=== PATIENT | male | born 1940 | race Hispanic/Latino ===

== ENCOUNTER 2016-05-17 10:11 | Outpatient (CLI) | payer MEDICARE ==
--- NOTE | 2016-05-17 11:46 | Cat Scan Report ---
CT scan of chest without IV contrast: Compared to 01/30/16. History: Pulmonary nodule. Findings: No endobronchial or mediastinal mass. No mediastinal, hilar or axillary adenopathy. Subcentimeter lymph nodes are noted in the mediastinum. No pleural pericardial effusion. The previously noted lung nodule seen in the left upper lobe posteriorly is not seen in the present study. There is a calcified granuloma noted at the left lung lower lobe measuring 4 mm in diameter on series 3 image 79. No consolidation, no distinct mass. Linear density left lower lobe suggestive of discoid atelectasis or scarring. Impression: Calcified granuloma left lower lobe. Previously noted nodule left upper lobe is not seen in the present study. Discoid atelectasis or scarring left lower lobe.
== END 2016-05-17 10:12 | disposition home or self-care (01) ==
LOC: CT 10:11
PROVIDERS: ATTEND Specialist
DX: J84.10 Pulmonary fibrosis, unspecified (principal); J98.11 Atelectasis
CPT/HCPCS: 71250

== ENCOUNTER 2017-05-09 18:22 | Emergency (ER) | payer MEDICARE ==
[2017-05-09 19:53] VITALS: BP 147/89
[2017-05-09] MEDS ORDERED: ASPIRIN PO ONE (20:01)
[2017-05-09 20:44] LABS: BUN/Creatinine Ratio 27; Blood Urea Nitrogen 19 mg/dL (9-20); Calcium 9.4 mg/dL (8.4-10.2); Hemolysis Index 19
[2017-05-09 20:45] LABS: Hematocrit 43.5 % (35.5-45.6); Hemoglobin 13.6 gm/dl (11.8-15.2); Mean Corpuscular HGB Conc 31 % (32-34); Mean Corpuscular Hemoglobin 28 pg (28-32); Mean Corpuscular Volume 90 fl (84-94); Platelet Count 401 K/mm3 (140-440); Red Blood Count 4.84 M/mm3 (3.65-5.03); Red Cell Distribution Width 18.8 % (13.2-15.2)
[2017-05-09 21:29] LABS: Basophils % (Manual) 0 % (0.0-1.8); Eosinophils % (Manual) 0 % (0.0-4.3); Total Cells Counted 100
[2017-05-09 21:30] LABS: Ovalocytes 1+
[2017-05-09 21:31] LABS: Anisocytosis 1+; Platelet Estimate Consistent w Auto
--- NOTE | 2017-05-11 09:28 | XRay Report ---
CHEST TWO VIEWS: 05/09/17 20:22 CLINICAL: Shortness of breath. COMPARISON: 03/15/17 FINDINGS: Normal heart and pulmonary vasculature. The lungs are hyperexpanded and hyperlucent. No airspace disease or pleural effusion. Median sternotomy wires and mediastinal surgical clips. IMPRESSION: COPDand no acute cardiopulmonary process.
== END 2017-05-09 23:15 | disposition left against medical advice (07) ==
LOC: ED 18:22
DX: R06.02 Shortness of breath (principal); Z53.21 Procedure and treatment not carried out due to patient leaving prior to being seen by health care provider
CPT/HCPCS: 36415; 71046; 80048; 84484; 85007; 85025; 93005; 93010

== ENCOUNTER 2017-05-14 20:15 | Inpatient (IN) | payer MEDICARE ==
[2017-05-14] MEDS ORDERED: ASPIRIN PO ONE (21:18)
[2017-05-14 21:35] LABS: Basophils % (Auto) 0.2 % (0.0-1.8); Eosinophils % (Auto) 0.1 % (0.0-4.3); Hematocrit 32.4 % (35.5-45.6); Hemoglobin 10.7 gm/dl (11.8-15.2); Lymphocytes # (Auto) 1.5 K/mm3 (1.2-5.4); Lymphocytes % (Auto) 11.2 % (13.4-35.0); Mean Corpuscular HGB Conc 33 % (32-34); Mean Corpuscular Hemoglobin 29 pg (28-32); Mean Corpuscular Volume 88 fl (84-94); Monocytes # (Auto) 1.2 K/mm3 (0.0-0.8); Monocytes % (Auto) 8.9 % (0.0-7.3); Platelet Count 298 K/mm3 (140-440); Red Blood Count 3.68 M/mm3 (3.65-5.03); Red Cell Distribution Width 17.6 % (13.2-15.2)
[2017-05-14 22:01] LABS: BUN/Creatinine Ratio 45; Blood Urea Nitrogen 27 mg/dL (9-20); Calcium 8.3 mg/dL (8.4-10.2); Hemolysis Index 8
[2017-05-14] MEDS ORDERED: ATROVENT IH ONE (23:43)
[2017-05-14] MEDS ORDERED: PROVENTIL IH ONE (23:43)
[2017-05-14] MEDS ORDERED: TYLENOL PO PRN (23:44)
[2017-05-14] MEDS ORDERED: MAGNESIUM SULFATE 2GM/50ML 2 GM/50 ML BAG IV ONE (23:44)
--- NOTE | 2017-05-14 23:44 | Emergency Department Report ---
ED General Adult HPI - General Chief complaint: Chest Pain Stated complaint: BACK PAIN Time Seen by Provider: 05/14/17 23:36 Source: patient, RN notes reviewed, old records reviewed Mode of arrival: Stretcher Limitations: No Limitations, Physical Limitation - History of Present Illness Initial comments: This is a 76-year-old male. The patient is previously known to this provider. Past medical history includes COPD, heart disease status post bypass. Patient recently admitted to the hospital for COPD exacerbation. Had a negative x-ray of the chest on the . Discharged with multiple prescriptions including azithromycin, prednisone taper. The patient thinks he is home oxygen dependent. He presents to the ER today with a complaint of chronic shortness of breath, chronic cough, chronic wheezing, chronic chest pain and back pain. These symptoms have been present for months. They are not new, worsening or different. Patient reports decreased exercise tolerance and inability to complete activities of daily living chronically. Chest pain and back pain have been present for years, they are sharp and achy in nature, increased with palpation, range of motion, decreased with rest. There is no leg pain, there is no leg swelling. The patient denies urinary symptoms. Family endorses that they're having difficulty caring for him. -: Gradual, year(s) Location: chest, back Severity scale (0 -10): 7 Quality: aching Consistency: intermittent Improves with: rest Worsens with: movement Associated Symptoms: chest pain, cough, malaise, shortness of breath, weakness. denies: confusion, diaphoresis, fever/chills, headaches, loss of appetite, nausea/vomiting, rash, seizure, syncope - Related Data Previous Rx's Medication Instructions Recorded Last Taken Type ALBUTEROL Inhaler [ProAir HFA 2 puff IH QID PRN #1 inhalation 08/21/16 Unknown Rx Inhaler] Arformoterol Nebu [Brovana Nebu] 15 mcg IH Q12HR #60 neb 08/21/16 Unknown Rx Aspirin EC [Aspirin Enteric Coated 81 mg PO QDAY #30 tablet. 08/21/16 Unknown Rx TAB] AtorvaSTATin [Lipitor] 40 mg PO QHS #30 tablet 08/21/16 Unknown Rx Budesonide [Pulmicort Respules] 0.25 mg IH Q12HR #60 nebu 08/21/16 Unknown Rx Ipratropium/Albuterol Sulfate 1 ampul IH Q6HRT #180 ampul.neb 08/21/16 Unknown Rx [DUONEB *Not for PRN Use*] Metoprolol [Lopressor TAB] 50 mg PO BID #60 tablet 08/21/16 Unknown Rx Tiotropium [place] [Spiriva 4 gm IH DAILY #1 mist.inhal 08/21/16 Unknown Rx Respimat] Ipratropium/Albuterol Sulfate 1 ampul IH TIDRT ampul.neb 03/18/17 Unknown Rx [DUONEB *Not for PRN Use*] Azithromycin [Zithromax TAB] 250 mg PO QDAY #3 tablet 05/13/17 Unknown Rx Famotidine [Pepcid] 20 mg PO BID #60 tablet 05/13/17 Unknown Rx Prednisone [predniSONE 5 mg (6-Day 5 mg PO .TAPER #1 tab.ds.pk 05/13/17 Unknown Rx Pack, 21 Tabs)] oxyCODONE /ACETAMINOPHEN [Percocet 1 tab PO Q6H PRN #14 tablet 05/13/17 Unknown Rx 5/325 mg] Allergies Allergy/AdvReac Type Severity Reaction Status Date / Time quetiapine Allergy Swelling Verified 08/31/15 13:19 ED Review of Systems ROS: Stated complaint: BACK PAIN Other details as noted in HPI Comment: All other systems reviewed and negative ED Past Medical Hx - Past Medical History Hx Hypertension: Yes Hx Heart Attack/AMI: Yes Hx Congestive Heart Failure: Yes Hx Asthma: Yes Hx COPD: Yes - Surgical History Hx Open Heart Surgery: Yes Additional Surgical History: BYPASS SURGERY 1999 - Social History Smoking Status: Former Smoker Substance Use Type: None - Medications Home Medications: Home Medications Medication Instructions Recorded Confirmed Last Taken Type ALBUTEROL Inhaler [ProAir HFA 2 puff IH QID PRN #1 inhalation 08/21/16 03/18/17 Unknown Rx Inhaler] Arformoterol Nebu [Brovana Nebu] 15 mcg IH Q12HR #60 neb 08/21/16 03/18/17 Unknown Rx Aspirin EC [Aspirin Enteric Coated 81 mg PO QDAY #30 tablet. 08/21/16 Unknown Rx TAB] AtorvaSTATin [Lipitor] 40 mg PO QHS #30 tablet 08/21/16 03/18/17 Unknown Rx Budesonide [Pulmicort Respules] 0.25 mg IH Q12HR #60 nebu 08/21/16 03/18/17 Unknown Rx Ipratropium/Albuterol Sulfate 1 ampul IH Q6HRT #180 ampul.neb 08/21/16 03/18/17 Unknown Rx [DUONEB *Not for PRN Use*] Metoprolol [Lopressor TAB] 50 mg PO BID #60 tablet 08/21/16 03/18/17 Unknown Rx Tiotropium [place] [Spiriva 4 gm IH DAILY #1 mist.inhal 08/21/16 03/18/17 Unknown Rx Respimat] Ipratropium/Albuterol Sulfate 1 ampul IH TIDRT ampul.neb 03/18/17 Unknown Rx [DUONEB *Not for PRN Use*] Azithromycin [Zithromax TAB] 250 mg PO QDAY #3 tablet 05/13/17 Unknown Rx Famotidine [Pepcid] 20 mg PO BID #60 tablet 05/13/17 Unknown Rx Prednisone [predniSONE 5 mg (6-Day 5 mg PO .TAPER #1 tab.ds.pk 05/13/17 Unknown Rx Pack, 21 Tabs)] oxyCODONE /ACETAMINOPHEN [Percocet 1 tab PO Q6H PRN #14 tablet 05/13/17 Unknown Rx 5/325 mg] ED Physical Exam - General Limitations: No Limitations, Physical Limitation General appearance: alert, cachectic - Head Head exam: Present: atraumatic, normocephalic - Eye Eye exam: Present: normal appearance, EOMI - ENT ENT exam: Present: normal orophraynx, mucous membranes dry - Neck Neck exam: Present: normal inspection, full ROM - Respiratory Respiratory exam: Present: respiratory distress, wheezes, rhonchi - Cardiovascular Cardiovascular Exam: Present: regular rate, normal rhythm, normal heart sounds. Absent: bradycardia, tachycardia, irregular rhythm, systolic murmur, diastolic murmur, rubs, gallop - GI/Abdominal GI/Abdominal exam: Present: soft, normal bowel sounds. Absent: distended, tenderness, guarding, rebound, rigid, pulsatile mass - Rectal Rectal exam: Present: deferred - Extremities Exam Extremities exam: Present: normal inspection, full ROM, normal capillary refill. Absent: pedal edema, joint swelling, calf tenderness - Back Exam Back exam: Present: normal inspection, full ROM. Absent: tenderness, CVA tenderness (R) - Neurological Exam Neurological exam: Present: alert, oriented X3, CN II-XII intact, other ( Extraocular movements intact. Tongue midline. No facial droop. Facial sensation intact to light touch in the V1, V2, V3 distribution bilaterally. 5 and 5 strength in 4 extremities.. Sensation is intact to light touch in 4 extremities.). Absent: motor sensory deficit - Psychiatric Psychiatric exam: Present: flat affect - Skin Skin exam: Present: warm, dry, intact, normal color. Absent: rash ED Course Vital Signs 05/14/17 05/14/17 05/14/17 20:37 21:12 23:19 Temperature 98.1 F 97.7 F Pulse Rate 63 63 64 Pulse Rate [ Anterior Bilateral Throughout] Respiratory 18 19 Rate Respiratory Rate [Anterior Bilateral Throughout] Blood Pressure 120/54 120/54 Blood Pressure 139/48 [Left] O2 Sat by Pulse 91 93 99 Oximetry 05/15/17 00:17 Temperature Pulse Rate Pulse Rate [ 70 Anterior Bilateral Throughout] Respiratory Rate Respiratory 22 Rate [Anterior Bilateral Throughout] Blood Pressure Blood Pressure [Left] O2 Sat by Pulse Oximetry - Reevaluation(s) Reevaluation #1: 05/15/17 00:46 Differential diagnosis, including but not limited to: Pneumonia, bronchitis, COPD, chronic debilitating Assessment and plan: 76-year-old male with chronic COPD. He is wheezing, saturating at 97% on room air, family is having difficulty helping to care for him. Chest pain atypical, present for years, troponin negative multiple times today, negative multiple times during recent admission, EKG morphologically abnormal but appears unchanged from prior. As per verbal report from EMS, patient was brought back because he cannot get his prescriptions filled. There appears to be significant social component to this patient's presentation. He will be given albuterol, Atrovent, steroids, magnesium. X-ray of the chest today was negative for pneumonia. It was negative for pneumonia a few days ago as well. Based on history, physical, duration of symptoms, I do not believe the patient requires any additional risk stratification for pulmonary embolus. The main issue here is his psychosocial needs, which will be addressed by heel caser and her social security benefits interviewer in the morning to assist with placement. Reevaluation #2: 05/15/17 01:19 Laboratory studies indicate hypoxemic respiratory failure. Patient still symptomatic. BiPAP is ordered. Hospital physician is paged to arrange admission. Reevaluation #3: 05/15/17 01:43 Dr. Mehta, the hospital physician accepts the patient to the medical service. ED Medical Decision Making - Lab Data Result diagrams: 05/14/17 21:24 05/14/17 21:24 Vital Signs 05/14/17 05/14/17 05/14/17 20:37 21:12 23:19 Temperature 98.1 F 97.7 F Pulse Rate 63 63 64 Pulse Rate [ Anterior Bilateral Throughout] Respiratory 18 19 Rate Respiratory Rate [Anterior Bilateral Throughout] Blood Pressure 120/54 120/54 Blood Pressure 139/48 [Left] O2 Sat by Pulse 91 93 99 Oximetry 05/15/17 00:17 Temperature Pulse Rate Pulse Rate [ 70 Anterior Bilateral Throughout] Respiratory Rate Respiratory 22 Rate [Anterior Bilateral Throughout] Blood Pressure Blood Pressure [Left] O2 Sat by Pulse Oximetry Lab Results 05/14/17 05/14/17 Range/Units 21:24 21:24 WBC 13.6 H (4.5-11.0) K/mm3 RBC 3.68 (3.65-5.03) M/mm3 Hgb 10.7 L (11.8-15.2) gm/dl Hct 32.4 L (35.5-45.6) % MCV 88 (84-94) fl MCH 29 (28-32) pg MCHC 33 (32-34) % RDW 17.6 H (13.2-15.2) % Plt Count 298 (140-440) K/mm3 Lymph % (Auto) 11.2 L (13.4-35.0) % [place] % (Auto) 8.9 H (0.0-7.3) % Eos % (Auto) 0.1 (0.0-4.3) % Baso % (Auto) 0.2 (0.0-1.8) % Lymph # 1.5 (1.2-5.4) K/mm3 [place] # 1.2 H (0.0-0.8) K/mm3 Eos # 0.0 (0.0-0.4) K/mm3 Baso # 0.0 (0.0-0.1) K/mm3 Seg Neutrophils % 79.6 H (40.0-70.0) % Seg Neutrophils # 10.8 H (1.8-7.7) K/mm3 Sodium 134 L (137-145) mmol/L Potassium 3.7 (3.6-5.0) mmol/L Chloride 96.0 L (98-107) mmol/L Carbon Dioxide 25 (22-30) mmol/L Anion Gap 17 mmol/L BUN 27 H (9-20) mg/dL Creatinine 0.6 L (0.8-1.5) mg/dL Estimated GFR > 60 ml/min BUN/Creatinine Ratio 45 % Glucose 99 (75-100) mg/dL Calcium 8.3 L (8.4-10.2) mg/dL Troponin T < 0.010 (0.00-0.029) ng/mL - EKG Data -: EKG Interpreted by Me - EKG Data When compared to previous EKG there are: no significant change 05/15/17 00:48 Normal sinus, 64 beats per minutes, and left axis deviation, multiple premature complexes, appears unchanged from old EKG from a few days ago, not consistent with a STEMI, normal intervals. - Radiology Data Radiology results: report reviewed, image reviewed X-ray of the chest demonstrates hyperinflated lungs, status post sternotomy, no obvious infiltrate. Critical Care Time: Yes Critical care time in (mins) excluding proc time.: 35 Critical care attestation.: If time is entered above; I have spent that time in minutes in the direct care of this critically ill patient, excluding procedure time. ED Disposition Clinical Impression: COPD exacerbation, SOB (shortness of breath), Acute respiratory failure Disposition: OP ADMIT IP TO THIS HOSP Is pt being admited?: Yes Does the pt Need Aspirin: Yes Condition: Good Instructions: Chronic Bronchitis (ED) Referrals: PATRIC ROWLAND MD [Primary Care Provider] - 3-5 Days
--- NOTE | 2017-05-15 00:18 | XRay Report ---
FINAL REPORT PROCEDURE: XR CHEST ROUTINE 2V TECHNIQUE: Chest radiograph anteroposterior view. CPT 78635 HISTORY: copd cp COMPARISON: 05/11/2017 FINDINGS: Heart: Normal. Mediastinum/Vessels: Multiple sternal wires are present. Lungs/Pleural space: Normal. Bony thorax: No acute osseous abnormality. Life support devices: None. IMPRESSION: No acute cardiopulmonary abnormality.
[2017-05-15] MEDS ORDERED: ZITHROMAX 500 MG in NACL 0.9% 250ML 250 ML IV ONE (01:19)
[2017-05-15] MEDS ORDERED: BABY ASPIRIN PO ONE (01:20)
[2017-05-15] MEDS ORDERED: ZITHROMAX 250 MG in NACL 0.9% 250ML 250 ML IV ONE (02:00)
[2017-05-15] MEDS ORDERED: SODIUM CHLORIDE FLUSH SYRINGE 10 ML IV PRN (03:35)
[2017-05-15] MEDS ORDERED: ZOFRAN IV PRN (03:35)
--- NOTE | 2017-05-15 03:40 | History and Physical Report ---
History of Present Illness Date of examination: 05/15/17 History of present illness: 62-year-old man with a history of COPD, hypertension, hyperlipidemia comes emergency room with complaints of shortness of breath. The patient was just discharged from the hospital yesterday, he returned to the emergency room, he had difficulty filling his prescription for prednisone and that is all the medications. Neighbor who brought him to the emergency room state that he has difficulty caring for himself at home . Complains of cough productive of yellow phlegm, no fever or chills. Patient was placed on BiPAP in the emergency room Review Of Systems: Constitutional: no weight loss Ears, eyes, nose, mouth and throat: no nasal congestion, no nasal discharge, no sinus pressure, blurry vision, diplopia Neck: No neck pain or rigidity. Cardiovascular: no Chest pain, orthopnea, palpitations Respiratory: + shortness of breath, cough Gastrointestinal: no abdominal pain, hematochezia Genitourinary : no dysuria, frequency , hematuria Musculoskeletal: no muscle ache Integumentary: no rash, no pruritis Neurological: no parathesias, focal weakness Endocrine: no cold or heat intolerance, no polyuria or polydipsia Hematologic/Lymphatic: no easy bruising, no easy bleeding, no gland swelling Allergic/Immunologic: no urticaria, no angioedema. PAST MEDICAL HISTORY: COPD, hypertension, hyperlipidemia PAST SURGICAL HISTORY: None SOCIAL HISTORY: Denies tobacco, alcohol, drugs FAMILY HISTORY: Hypertension Medications and Allergies Allergies Allergy/AdvReac Type Severity Reaction Status Date / Time quetiapine Allergy Swelling Verified 08/31/15 13:19 Home Medications Medication Instructions Recorded Confirmed Last Taken Type ALBUTEROL Inhaler [ProAir HFA 2 puff IH QID PRN #1 inhalation 08/21/16 03/18/17 Unknown Rx Inhaler] Arformoterol Nebu [Brovana Nebu] 15 mcg IH Q12HR #60 neb 08/21/16 03/18/17 Unknown Rx Aspirin EC [Aspirin Enteric Coated 81 mg PO QDAY #30 tablet. 08/21/16 Unknown Rx TAB] AtorvaSTATin [Lipitor] 40 mg PO QHS #30 tablet 08/21/16 03/18/17 Unknown Rx Budesonide [Pulmicort Respules] 0.25 mg IH Q12HR #60 nebu 08/21/16 03/18/17 Unknown Rx Ipratropium/Albuterol Sulfate 1 ampul IH Q6HRT #180 ampul.neb 08/21/16 03/18/17 Unknown Rx [DUONEB *Not for PRN Use*] Metoprolol [Lopressor TAB] 50 mg PO BID #60 tablet 08/21/16 03/18/17 Unknown Rx Tiotropium [place] [Spiriva 4 gm IH DAILY #1 mist.inhal 08/21/16 03/18/17 Unknown Rx Respimat] Ipratropium/Albuterol Sulfate 1 ampul IH TIDRT ampul.neb 03/18/17 Unknown Rx [DUONEB *Not for PRN Use*] Azithromycin [Zithromax TAB] 250 mg PO QDAY #3 tablet 05/13/17 Unknown Rx Famotidine [Pepcid] 20 mg PO BID #60 tablet 05/13/17 Unknown Rx Prednisone [predniSONE 5 mg (6-Day 5 mg PO .TAPER #1 tab.ds.pk 05/13/17 Unknown Rx Pack, 21 Tabs)] oxyCODONE /ACETAMINOPHEN [Percocet 1 tab PO Q6H PRN #14 tablet 05/13/17 Unknown Rx 5/325 mg] Active Meds: Active Medications Acetaminophen (Tylenol) 650 mg PO Q6HR PRN PRN Reason: Pain Acetaminophen (Tylenol) 650 mg PO Q4H PRN PRN Reason: Pain MILD(1-3)/Fever >100.5/MEDEROS Albuterol/Ipratropium (Duoneb *Not For Prn Use*) 1 ampul IH Q6HRT JAZMINE Enoxaparin Sodium (Lovenox) 30 mg SUB-Q QDAY JAZMINE Methylprednisolone Sodium Succinate (Solu-Medrol) 125 mg IV Q6H JAZMINE Ondansetron HCl (Zofran) 4 mg IV Q8H PRN PRN Reason: Nausea And Vomiting Sodium Chloride (Sodium Chloride Flush Syringe 10 Ml) 10 ml IV BID JAZMINE Sodium Chloride (Sodium Chloride Flush Syringe 10 Ml) 10 ml IV PRN PRN PRN Reason: LINE FLUSH Exam - Physical Exam Narrative exam: Gen. appearance: Patient lying in bed, no apparent distress HEENT: Normocephalic, atraumatic, pupils equally round and reactive to light, extraocular movement intact, and no sclericterus,. No JVD or thyromegaly or nodule,neck supple, no carotid bruit ,mucous membranes moist, no exudate or erythema Heart: S1, S2, regular rate and rhythm Lungs: Wheezing bilaterally, breathing comfortable Abdomen: Positive bowel sounds, nontender, nondistended, no organomegaly Extremity: No edema, cyanosis, clubbing Skin: No rash, nodules, warm, dry Neuro: Oriented 3, cranial nerves II-12 intact, speech is fluent, motor and sensory intact - Constitutional Vitals: Temp Pulse Resp BP Pulse Ox 97.7 F 105 H 27 H 115/47 97 05/14/17 23:19 05/15/17 03:00 05/15/17 03:00 05/15/17 03:00 05/15/17 03:00 Results - Labs CBC & Chem 7: 05/14/17 21:24 05/14/17 21:24 Labs: Abnormal lab results 05/14/17 05/14/17 05/15/17 Range/Units 21:24 21:24 00:29 WBC 13.6 H (4.5-11.0) K/mm3 Hgb 10.7 L (11.8-15.2) gm/dl Hct 32.4 L (35.5-45.6) % RDW 17.6 H (13.2-15.2) % Lymph % (Auto) 11.2 L (13.4-35.0) % [place] % (Auto) 8.9 H (0.0-7.3) % [place] # 1.2 H (0.0-0.8) K/mm3 Seg Neutrophils % 79.6 H (40.0-70.0) % Seg Neutrophils # 10.8 H (1.8-7.7) K/mm3 POC ABG pH (7.35-7.45) POC ABG pCO2 (35-45) POC ABG pO2 (80-105) Sodium 134 L (137-145) mmol/L Chloride 96.0 L (98-107) mmol/L BUN 27 H (9-20) mg/dL Creatinine 0.6 L (0.8-1.5) mg/dL Calcium 8.3 L (8.4-10.2) mg/dL Total Creatine Kinase 23 L (55-170) units/L 05/15/17 Range/Units 01:13 WBC (4.5-11.0) K/mm3 Hgb (11.8-15.2) gm/dl Hct (35.5-45.6) % RDW (13.2-15.2) % Lymph % (Auto) (13.4-35.0) % [place] % (Auto) (0.0-7.3) % [place] # (0.0-0.8) K/mm3 Seg Neutrophils % (40.0-70.0) % Seg Neutrophils # (1.8-7.7) K/mm3 POC ABG pH 7.518 H (7.35-7.45) POC ABG pCO2 29.7 L (35-45) POC ABG pO2 31 L (80-105) Sodium (137-145) mmol/L Chloride (98-107) mmol/L BUN (9-20) mg/dL Creatinine (0.8-1.5) mg/dL Calcium (8.4-10.2) mg/dL Total Creatine Kinase (55-170) units/L Assessment and Plan Assessment Acute respiratory failure Acute COPD exacerbation Hypertension Hyperlipidemia Plan Admit to medicine Start high-dose steroids, nebulizer treatment, continue BiPAP Case management consult Continued outpatient medications DVT prophylaxis
[2017-05-15 04:17] LABS: Creatine Kinase MB 1.8 ng/mL (0.0-4.0)
[2017-05-15] MEDS ORDERED: BROVANA NEBU IH SCH (08:00)
[2017-05-15] MEDS: DUONEB *Not for PRN Use IH SCH ×3 (09:26→20:25)
[2017-05-15] MEDS: PEPCID PO SCH ×2 (11:32→21:26)
[2017-05-15] MEDS: HALFPRIN EC PO SCH (11:32)
[2017-05-15] MEDS: LOPRESSOR PO SCH ×2 (11:34→21:26)
[2017-05-15] MEDS: LOVENOX SUB-Q SCH (11:34)
[2017-05-15] MEDS: SODIUM CHLORIDE FLUSH SYRINGE 10 ML IV SCH ×2 (11:48→21:27)
--- NOTE | 2017-05-15 16:48 | Event Note ---
Date: 05/15/17 Agent admitted for COPD exacerbation, patient is able to take care of himself. Patient needs placement.
[2017-05-15] MEDS: PERCOCET 5/325 PO PRN (19:07)
[2017-05-15] MEDS: AMBIEN PO PRN (23:34)
[2017-05-16] MEDS: PERCOCET 5/325 PO PRN ×3 (01:29→21:11)
[2017-05-16] MEDS: DUONEB *Not for PRN Use IH SCH ×4 (03:40→20:39)
[2017-05-16 07:41] LABS: Hematocrit 28.5 % (35.5-45.6); Hemoglobin 9.5 gm/dl (11.8-15.2); Mean Corpuscular HGB Conc 33 % (32-34); Mean Corpuscular Hemoglobin 29 pg (28-32); Mean Corpuscular Volume 87 fl (84-94); Platelet Count 283 K/mm3 (140-440); Red Blood Count 3.27 M/mm3 (3.65-5.03); Red Cell Distribution Width 17.5 % (13.2-15.2)
[2017-05-16 08:00] LABS: BUN/Creatinine Ratio 33; Blood Urea Nitrogen 20 mg/dL (9-20); Calcium 8.2 mg/dL (8.4-10.2); Hemolysis Index 1
[2017-05-16] MEDS: PULMICORT IH SCH ×2 (08:27→20:38)
[2017-05-16] MEDS: BROVANA NEBU IH SCH ×2 (08:27→20:38)
[2017-05-16 08:33] LABS: Basophils % (Manual) 0 % (0.0-1.8); Eosinophils % (Manual) 0 % (0.0-4.3); Total Cells Counted 100
[2017-05-16 08:34] LABS: RBC Morphology Normal
--- NOTE | 2017-05-16 10:04 | Progress Note ---
Assessment and Plan Assessment and plan: Acute COPD exacerbation Continue Brovana and Pulmicort, solu-medrol. supplemental Oxygen Acute respiratory failure due to COPD exacerbation Continue supplemental Oxygen. Hypertension BP stable. resume Metoprolol bid Hyperlipidemia Continue statin DVT prophylaxis Lovenox. Patient disposition [facility] placement at [facility] History Interval history: Patient seen and examined. No new issues overnight. Labs and nursing notes reviewed. Hospitalist Physical - Constitutional Vitals: Temp Pulse Resp BP Pulse Ox 99.1 F 107 H 20 113/47 91 05/16/17 03:59 05/16/17 04:00 05/16/17 03:59 05/16/17 03:59 05/16/17 03:59 General appearance: Present: no acute distress, cachectic - EENT Eyes: Present: PERRL, EOM intact ENT: hearing intact, clear oral mucosa - Neck Neck: Present: supple, normal ROM - Respiratory Respiratory effort: normal Respiratory: bilateral: diminished - Cardiovascular Rhythm: regular Heart Sounds: Present: S1 & S2 - Extremities Extremities: no ischemia, No edema - Abdominal General gastrointestinal: soft, non-tender, non-distended - Integumentary Integumentary: Present: clear, warm, dry - Psychiatric Psychiatric: appropriate mood/affect, intact judgment & insight, cooperative - Neurologic Neurologic: CNII-XII intact, moves all extremities - Allied Health Allied health notes reviewed: nursing Results - Labs CBC & Chem 7: 05/16/17 07:05 05/16/17 07:05 Labs: Laboratory Last Values WBC 14.8 K/mm3 (4.5-11.0) H 05/16/17 07:05 RBC 3.27 M/mm3 (3.65-5.03) L 05/16/17 07:05 Hgb 9.5 gm/dl (11.8-15.2) L 05/16/17 07:05 Hct 28.5 % (35.5-45.6) L 05/16/17 07:05 MCV 87 fl (84-94) 05/16/17 07:05 MCH 29 pg (28-32) 05/16/17 07:05 MCHC 33 % (32-34) 05/16/17 07:05 RDW 17.5 % (13.2-15.2) H 05/16/17 07:05 Plt Count 283 K/mm3 (140-440) 05/16/17 07:05 Lymph % (Auto) 11.2 % (13.4-35.0) L 05/14/17 21:24 [place] % (Auto) 8.9 % (0.0-7.3) H 05/14/17 21:24 Eos % (Auto) 0.1 % (0.0-4.3) 05/14/17 21:24 Baso % (Auto) 0.2 % (0.0-1.8) 05/14/17 21:24 Lymph # 1.5 K/mm3 (1.2-5.4) 05/14/17 21:24 [place] # 1.2 K/mm3 (0.0-0.8) H 05/14/17 21:24 Eos # 0.0 K/mm3 (0.0-0.4) 05/14/17 21:24 Baso # 0.0 K/mm3 (0.0-0.1) 05/14/17 21:24 Add Manual Diff Complete 05/16/17 07:05 Total Counted 100 05/16/17 07:05 Seg Neutrophils % Scrap Drop Operator 05/16/17 07:05 Seg Neuts % (Manual) 92.0 % (40.0-70.0) H 05/16/17 07:05 Band Neutrophils % 0 % 05/16/17 07:05 Lymphocytes % (Manual) 4.0 % (13.4-35.0) L 05/16/17 07:05 Reactive Lymphs % (Man) 0 % 05/16/17 07:05 Monocytes % (Manual) 4.0 % (0.0-7.3) 05/16/17 07:05 Eosinophils % (Manual) 0 % (0.0-4.3) 05/16/17 07:05 Basophils % (Manual) 0 % (0.0-1.8) 05/16/17 07:05 Metamyelocytes % 0 % 05/16/17 07:05 Myelocytes % 0 % 05/16/17 07:05 Promyelocytes % 0 % 05/16/17 07:05 Blast Cells % 0 % 05/16/17 07:05 Nucleated RBC % Not Reportable 05/16/17 07:05 Seg Neutrophils # 10.8 K/mm3 (1.8-7.7) H 05/14/17 21:24 Seg Neutrophils # Man 13.6 K/mm3 (1.8-7.7) H 05/16/17 07:05 Band Neutrophils # 0.0 K/mm3 05/16/17 07:05 Lymphocytes # (Manual) 0.6 K/mm3 (1.2-5.4) L 05/16/17 07:05 Abs React Lymphs (Man) 0.0 K/mm3 05/16/17 07:05 Monocytes # (Manual) 0.6 K/mm3 (0.0-0.8) 05/16/17 07:05 Eosinophils # (Manual) 0.0 K/mm3 (0.0-0.4) 05/16/17 07:05 Basophils # (Manual) 0.0 K/mm3 (0.0-0.1) 05/16/17 07:05 Metamyelocytes # 0.0 K/mm3 05/16/17 07:05 Myelocytes # 0.0 K/mm3 05/16/17 07:05 Promyelocytes # 0.0 K/mm3 05/16/17 07:05 Blast Cells # 0.0 K/mm3 05/16/17 07:05 WBC Morphology Not Reportable 05/16/17 07:05 Hypersegmented Neuts Not Reportable 05/16/17 07:05 Hyposegmented Neuts Not Reportable 05/16/17 07:05 Hypogranular Neuts Not Reportable 05/16/17 07:05 Smudge Cells Not Reportable 05/16/17 07:05 Toxic Granulation Not Reportable 05/16/17 07:05 Toxic Vacuolation Not Reportable 05/16/17 07:05 Dohle Bodies Not Reportable 05/16/17 07:05 Pelger-Huet Anomaly Not Reportable 05/16/17 07:05 Khari Rods Not Reportable 05/16/17 07:05 Platelet Estimate Appears normal 05/16/17 07:05 Clumped Platelets Not Reportable 05/16/17 07:05 Plt Clumps, EDTA Not Reportable 05/16/17 07:05 Large Platelets Not Reportable 05/16/17 07:05 Giant Platelets Not Reportable 05/16/17 07:05 Platelet Satelliting Not Reportable 05/16/17 07:05 Plt Morphology Comment Not Reportable 05/16/17 07:05 RBC Morphology Normal 05/16/17 07:05 Dimorphic RBCs Not Reportable 05/16/17 07:05 Polychromasia Not Reportable 05/16/17 07:05 Hypochromasia Not Reportable 05/16/17 07:05 Poikilocytosis Not Reportable 05/16/17 07:05 Anisocytosis Not Reportable 05/16/17 07:05 Microcytosis Not Reportable 05/16/17 07:05 Macrocytosis Not Reportable 05/16/17 07:05 Spherocytes Not Reportable 05/16/17 07:05 Pappenheimer Bodies Not Reportable 05/16/17 07:05 Sickle Cells Not Reportable 05/16/17 07:05 Target Cells Not Reportable 05/16/17 07:05 Tear Drop Cells Not Reportable 05/16/17 07:05 Ovalocytes Not Reportable 05/16/17 07:05 Helmet Cells Not Reportable 05/16/17 07:05 [place] Bodies Not Reportable 05/16/17 07:05 [place] Rings Not Reportable 05/16/17 07:05 [place] Cells Not Reportable 05/16/17 07:05 Bite Cells Not Reportable 05/16/17 07:05 Crenated Cell Not Reportable 05/16/17 07:05 Elliptocytes Not Reportable 05/16/17 07:05 Acanthocytes (Spur) Not Reportable 05/16/17 07:05 Rouleaux Not Reportable 05/16/17 07:05 Hemoglobin C Crystals Not Reportable 05/16/17 07:05 Schistocytes Not Reportable 05/16/17 07:05 Malaria parasites Not Reportable 05/16/17 07:05 Mike Bodies Not Reportable 05/16/17 07:05 Hem Pathologist Commnt No 05/16/17 07:05 POC ABG pH 7.518 (7.35-7.45) H 05/15/17 01:13 POC ABG pCO2 29.7 (35-45) L 05/15/17 01:13 POC ABG pO2 31 (80-105) L 05/15/17 01:13 POC ABG HCO3 24.2 05/15/17 01:13 POC ABG Total CO2 25 05/15/17 01:13 POC ABG O2 Sat 69 03/29/18 01:13 POC ABG Base Excess 1 05/15/17 01:13 FiO2 32 % 05/15/17 01:13 Sodium 139 mmol/L (137-145) 05/16/17 07:05 Potassium 3.6 mmol/L (3.6-5.0) 05/16/17 07:05 Chloride 99.6 mmol/L (98-107) 05/16/17 07:05 Carbon Dioxide 25 mmol/L (22-30) 05/16/17 07:05 Anion Gap 18 mmol/L 05/16/17 07:05 BUN 20 mg/dL (9-20) 05/16/17 07:05 Creatinine 0.6 mg/dL (0.8-1.5) L 05/16/17 07:05 Estimated GFR > 60 ml/min 05/16/17 07:05 BUN/Creatinine Ratio 33 % 05/16/17 07:05 Glucose 168 mg/dL (75-100) H 05/16/17 07:05 Calcium 8.2 mg/dL (8.4-10.2) L 05/16/17 07:05 Total Creatine Kinase 20 units/L (55-170) L 05/15/17 09:56 CK-MB (CK-2) 2.0 ng/mL (0.0-4.0) 05/15/17 09:56 CK-MB (CK-2) Rel Index 10.0 (0-4) H 05/15/17 09:56 Troponin T < 0.010 ng/mL (0.00-0.029) 05/15/17 09:56
[2017-05-16] MEDS: LOVENOX SUB-Q SCH (10:49)
[2017-05-16] MEDS: PEPCID PO SCH ×2 (10:49→21:06)
[2017-05-16] MEDS: HALFPRIN EC PO SCH (10:49)
[2017-05-16] MEDS: LOPRESSOR PO SCH ×2 (10:49→21:06)
[2017-05-16] MEDS ORDERED: PNEUMOVAX 23 IM ONE (12:00)
[2017-05-16] MEDS: AMBIEN PO PRN (21:12)
[2017-05-17] MEDS: DUONEB *Not for PRN Use IH SCH ×4 (02:48→20:52)
[2017-05-17] MEDS: PERCOCET 5/325 PO PRN ×2 (02:58→19:09)
[2017-05-17] MEDS: SODIUM CHLORIDE FLUSH SYRINGE 10 ML IV SCH ×5 (05:37→23:31)
[2017-05-17] MEDS: BROVANA NEBU IH SCH ×2 (08:06→20:52)
[2017-05-17] MEDS: PULMICORT IH SCH ×2 (08:06→20:52)
[2017-05-17] MEDS: HALFPRIN EC PO SCH (11:52)
[2017-05-17] MEDS: LOVENOX SUB-Q SCH (11:52)
[2017-05-17] MEDS: LOPRESSOR PO SCH ×2 (11:52→23:28)
[2017-05-17] MEDS: PEPCID PO SCH ×2 (11:53→23:28)
--- NOTE | 2017-05-17 18:14 | Progress Note ---
Assessment and Plan Assessment and plan: 76-year-old male presented to the ED for c/o SOB and not able to taking care of himself. Patient was discharged the day before admission after he was treated for COPD exacerbation. Patient didn't refill hid medications at the time of discharge. Acute hypoxic respiratory failure COPD exacerbation - Patient is on Solu-Medrol, nebulizer, oxygen support - Patient showed marked improvement Hyperlipidemia - Continue statin Hypertension - Well-controlled - Continue metoprolol Leukocytosis secondary to steroid Patient is not able to take care of himself, PT consult placed, discussed this case management for placement DVT prophylaxis - Lovenox History Interval history: Patient was seen and evaluated this morning, patient was breathing comfortably without oxygen. Hospitalist Physical - Physical exam Narrative exam: Not in cardiopulmonary distress. The patient appeared well nourished and normally developed. Vital signs as documented. Head exam is unremarkable. No scleral icterus . Neck is without jugular venous distension, thyromegaly, or carotid bruits. Lungs scattered wheezing. Cardiac exam reveals regular rate and Rhythm. First and second heart sounds normal. No murmurs, rubs or gallops. Abdominal exam reveals normal bowel sounds, no masses, no organomegaly and no aortic enlargement. Extremities are nonedematous and both femoral and pedal pulses are normal. 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 No focal weakness. - Constitutional Vitals: Temp Pulse Resp BP Pulse Ox 98.0 F 75 18 126/62 94 05/17/17 05:14 05/17/17 15:19 05/17/17 15:19 05/17/17 05:14 05/17/17 08:09 General appearance: Present: no acute distress, cachectic Results - Labs CBC & Chem 7: 05/16/17 07:05 05/16/17 07:05 Labs: Laboratory Last Values WBC 14.8 K/mm3 (4.5-11.0) H 05/16/17 07:05 RBC 3.27 M/mm3 (3.65-5.03) L 05/16/17 07:05 Hgb 9.5 gm/dl (11.8-15.2) L 05/16/17 07:05 Hct 28.5 % (35.5-45.6) L 05/16/17 07:05 MCV 87 fl (84-94) 05/16/17 07:05 MCH 29 pg (28-32) 05/16/17 07:05 MCHC 33 % (32-34) 05/16/17 07:05 RDW 17.5 % (13.2-15.2) H 05/16/17 07:05 Plt Count 283 K/mm3 (140-440) 05/16/17 07:05 Lymph % (Auto) 11.2 % (13.4-35.0) L 05/14/17 21:24 [place] % (Auto) 8.9 % (0.0-7.3) H 05/14/17 21:24 Eos % (Auto) 0.1 % (0.0-4.3) 05/14/17 21:24 Baso % (Auto) 0.2 % (0.0-1.8) 05/14/17 21:24 Lymph # 1.5 K/mm3 (1.2-5.4) 05/14/17 21:24 [place] # 1.2 K/mm3 (0.0-0.8) H 05/14/17 21:24 Eos # 0.0 K/mm3 (0.0-0.4) 05/14/17 21:24 Baso # 0.0 K/mm3 (0.0-0.1) 05/14/17 21:24 Add Manual Diff Complete 05/16/17 07:05 Total Counted 100 05/16/17 07:05 Seg Neutrophils % Slitter Scorer Cut Off Operator 05/16/17 07:05 Seg Neuts % (Manual) 92.0 % (40.0-70.0) H 05/16/17 07:05 Band Neutrophils % 0 % 05/16/17 07:05 Lymphocytes % (Manual) 4.0 % (13.4-35.0) L 05/16/17 07:05 Reactive Lymphs % (Man) 0 % 05/16/17 07:05 Monocytes % (Manual) 4.0 % (0.0-7.3) 05/16/17 07:05 Eosinophils % (Manual) 0 % (0.0-4.3) 05/16/17 07:05 Basophils % (Manual) 0 % (0.0-1.8) 05/16/17 07:05 Metamyelocytes % 0 % 05/16/17 07:05 Myelocytes % 0 % 03/30/18 07:05 Promyelocytes % 0 % 05/16/17 07:05 Blast Cells % 0 % 05/16/17 07:05 Nucleated RBC % Not Reportable 05/16/17 07:05 Seg Neutrophils # 10.8 K/mm3 (1.8-7.7) H 05/14/17 21:24 Seg Neutrophils # Man 13.6 K/mm3 (1.8-7.7) H 05/16/17 07:05 Band Neutrophils # 0.0 K/mm3 05/16/17 07:05 Lymphocytes # (Manual) 0.6 K/mm3 (1.2-5.4) L 05/16/17 07:05 Abs React Lymphs (Man) 0.0 K/mm3 05/16/17 07:05 Monocytes # (Manual) 0.6 K/mm3 (0.0-0.8) 05/16/17 07:05 Eosinophils # (Manual) 0.0 K/mm3 (0.0-0.4) 05/16/17 07:05 Basophils # (Manual) 0.0 K/mm3 (0.0-0.1) 05/16/17 07:05 Metamyelocytes # 0.0 K/mm3 05/16/17 07:05 Myelocytes # 0.0 K/mm3 05/16/17 07:05 Promyelocytes # 0.0 K/mm3 05/16/17 07:05 Blast Cells # 0.0 K/mm3 05/16/17 07:05 WBC Morphology Not Reportable 05/16/17 07:05 Hypersegmented Neuts Not Reportable 05/16/17 07:05 Hyposegmented Neuts Not Reportable 05/16/17 07:05 Hypogranular Neuts Not Reportable 05/16/17 07:05 Smudge Cells Not Reportable 05/16/17 07:05 Toxic Granulation Not Reportable 05/16/17 07:05 Toxic Vacuolation Not Reportable 05/16/17 07:05 Dohle Bodies Not Reportable 05/16/17 07:05 Pelger-Huet Anomaly Not Reportable 05/16/17 07:05 Khari Rods Not Reportable 05/16/17 07:05 Platelet Estimate Appears normal 05/16/17 07:05 Clumped Platelets Not Reportable 05/16/17 07:05 Plt Clumps, EDTA Not Reportable 05/16/17 07:05 Large Platelets Not Reportable 05/16/17 07:05 Giant Platelets Not Reportable 05/16/17 07:05 Platelet Satelliting Not Reportable 05/16/17 07:05 Plt Morphology Comment Not Reportable 05/16/17 07:05 RBC Morphology Normal 05/16/17 07:05 Dimorphic RBCs Not Reportable 05/16/17 07:05 Polychromasia Not Reportable 05/16/17 07:05 Hypochromasia Not Reportable 05/16/17 07:05 Poikilocytosis Not Reportable 05/16/17 07:05 Anisocytosis Not Reportable 05/16/17 07:05 Microcytosis Not Reportable 05/16/17 07:05 Macrocytosis Not Reportable 05/16/17 07:05 Spherocytes Not Reportable 05/16/17 07:05 Pappenheimer Bodies Not Reportable 05/16/17 07:05 Sickle Cells Not Reportable 05/16/17 07:05 Target Cells Not Reportable 05/16/17 07:05 Tear Drop Cells Not Reportable 05/16/17 07:05 Ovalocytes Not Reportable 05/16/17 07:05 Helmet Cells Not Reportable 05/16/17 07:05 [place] Bodies Not Reportable 05/16/17 07:05 [place] Rings Not Reportable 05/16/17 07:05 [place] Cells Not Reportable 05/16/17 07:05 Bite Cells Not Reportable 05/16/17 07:05 Crenated Cell Not Reportable 05/16/17 07:05 Elliptocytes Not Reportable 05/16/17 07:05 Acanthocytes (Spur) Not Reportable 05/16/17 07:05 Rouleaux Not Reportable 05/16/17 07:05 Hemoglobin C Crystals Not Reportable 05/16/17 07:05 Schistocytes Not Reportable 05/16/17 07:05 Malaria parasites Not Reportable 05/16/17 07:05 Mike Bodies Not Reportable 05/16/17 07:05 Hem Pathologist Commnt No 05/16/17 07:05 POC ABG pH 7.518 (7.35-7.45) H 05/15/17 01:13 POC ABG pCO2 29.7 (35-45) L 05/15/17 01:13 POC ABG pO2 31 (80-105) L 05/15/17 01:13 POC ABG HCO3 24.2 05/15/17 01:13 POC ABG Total CO2 25 05/15/17 01:13 POC ABG O2 Sat 69 05/15/17 01:13 POC ABG Base Excess 1 05/15/17 01:13 FiO2 32 % 05/15/17 01:13 Sodium 139 mmol/L (137-145) 05/16/17 07:05 Potassium 3.6 mmol/L (3.6-5.0) 05/16/17 07:05 Chloride 99.6 mmol/L (98-107) 05/16/17 07:05 Carbon Dioxide 25 mmol/L (22-30) 05/16/17 07:05 Anion Gap 18 mmol/L 05/16/17 07:05 BUN 20 mg/dL (9-20) 05/16/17 07:05 Creatinine 0.6 mg/dL (0.8-1.5) L 05/16/17 07:05 Estimated GFR > 60 ml/min 05/16/17 07:05 BUN/Creatinine Ratio 33 % 05/16/17 07:05 Glucose 168 mg/dL (75-100) H 05/16/17 07:05 Calcium 8.2 mg/dL (8.4-10.2) L 05/16/17 07:05 Total Creatine Kinase 20 units/L (55-170) L 05/15/17 09:56 CK-MB (CK-2) 2.0 ng/mL (0.0-4.0) 05/15/17 09:56 CK-MB (CK-2) Rel Index 10.0 (0-4) H 05/15/17 09:56 Troponin T < 0.010 ng/mL (0.00-0.029) 05/15/17 09:56
[2017-05-17] MEDS: TYLENOL PO PRN (23:28)
[2017-05-18] MEDS: AMBIEN PO PRN ×2 (03:34→22:18)
[2017-05-18] MEDS: DUONEB *Not for PRN Use IH SCH ×4 (03:58→20:01)
[2017-05-18] MEDS: BROVANA NEBU IH SCH ×2 (07:50→20:01)
[2017-05-18] MEDS: PULMICORT IH SCH ×2 (07:51→20:01)
[2017-05-18] MEDS: HALFPRIN EC PO SCH (11:35)
[2017-05-18] MEDS: PEPCID PO SCH ×2 (11:35→22:18)
[2017-05-18] MEDS: LOVENOX SUB-Q SCH (11:36)
[2017-05-18] MEDS: LOPRESSOR PO SCH ×2 (11:36→22:18)
[2017-05-18] MEDS: SODIUM CHLORIDE FLUSH SYRINGE 10 ML IV SCH ×2 (11:41→22:21)
[2017-05-18] MEDS: PERCOCET 5/325 PO PRN (13:34)
--- NOTE | 2017-05-18 15:49 | Progress Note ---
Assessment and Plan Assessment and plan: 76-year-old male presented to the ED for c/o SOB and not able to taking care of himself. Patient was discharged the day before admission after he was treated for COPD exacerbation. Patient didn't refill hid medications at the time of discharge. Acute hypoxic respiratory failure COPD exacerbation - Patient is on Solu-Medrol, nebulizer, oxygen support - Patient showed marked improvement Hyperlipidemia - Continue statin Hypertension - Well-controlled - Continue metoprolol Leukocytosis secondary to steroid Patient is not able to take care of himself, PT consult placed, discussed this case management for placement DVT prophylaxis - Lovenox History Interval history: Patient was seen and evaluated this morning, patient was breathing comfortably without oxygen. Hospitalist Physical - Physical exam Narrative exam: Not in cardiopulmonary distress. The patient appeared well nourished and normally developed. Vital signs as documented. Head exam is unremarkable. No scleral icterus . Neck is without jugular venous distension, thyromegaly, or carotid bruits. Lungs scattered wheezing. Cardiac exam reveals regular rate and Rhythm. First and second heart sounds normal. No murmurs, rubs or gallops. Abdominal exam reveals normal bowel sounds, no masses, no organomegaly and no aortic enlargement. Extremities are nonedematous and both femoral and pedal pulses are normal. 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 No focal weakness. - Constitutional Vitals: Temp Pulse Resp BP Pulse Ox 98.0 F 105 H 20 135/61 92 05/18/17 09:03 05/18/17 13:31 05/18/17 13:31 05/18/17 09:03 05/18/17 09:03 General appearance: Present: no acute distress, cachectic Results - Labs CBC & Chem 7: 05/16/17 07:05 05/16/17 07:05 Labs: Laboratory Last Values WBC 14.8 K/mm3 (4.5-11.0) H 05/16/17 07:05 RBC 3.27 M/mm3 (3.65-5.03) L 05/16/17 07:05 Hgb 9.5 gm/dl (11.8-15.2) L 05/16/17 07:05 Hct 28.5 % (35.5-45.6) L 05/16/17 07:05 MCV 87 fl (84-94) 05/16/17 07:05 MCH 29 pg (28-32) 05/16/17 07:05 MCHC 33 % (32-34) 05/16/17 07:05 RDW 17.5 % (13.2-15.2) H 05/16/17 07:05 Plt Count 283 K/mm3 (140-440) 05/16/17 07:05 Lymph % (Auto) 11.2 % (13.4-35.0) L 05/14/17 21:24 [place] % (Auto) 8.9 % (0.0-7.3) H 05/14/17 21:24 Eos % (Auto) 0.1 % (0.0-4.3) 05/14/17 21:24 Baso % (Auto) 0.2 % (0.0-1.8) 05/14/17 21:24 Lymph # 1.5 K/mm3 (1.2-5.4) 05/14/17 21:24 [place] # 1.2 K/mm3 (0.0-0.8) H 05/14/17 21:24 Eos # 0.0 K/mm3 (0.0-0.4) 05/14/17 21:24 Baso # 0.0 K/mm3 (0.0-0.1) 05/14/17 21:24 Add Manual Diff Complete 05/16/17 07:05 Total Counted 100 05/16/17 07:05 Seg Neutrophils % Paint Mixer 05/16/17 07:05 Seg Neuts % (Manual) 92.0 % (40.0-70.0) H 05/16/17 07:05 Band Neutrophils % 0 % 05/16/17 07:05 Lymphocytes % (Manual) 4.0 % (13.4-35.0) L 05/16/17 07:05 Reactive Lymphs % (Man) 0 % 05/16/17 07:05 Monocytes % (Manual) 4.0 % (0.0-7.3) 05/16/17 07:05 Eosinophils % (Manual) 0 % (0.0-4.3) 05/16/17 07:05 Basophils % (Manual) 0 % (0.0-1.8) 05/16/17 07:05 Metamyelocytes % 0 % 05/16/17 07:05 Myelocytes % 0 % 05/16/17 07:05 Promyelocytes % 0 % 05/16/17 07:05 Blast Cells % 0 % 05/16/17 07:05 Nucleated RBC % Not Reportable 05/16/17 07:05 Seg Neutrophils # 10.8 K/mm3 (1.8-7.7) H 05/14/17 21:24 Seg Neutrophils # Man 13.6 K/mm3 (1.8-7.7) H 05/16/17 07:05 Band Neutrophils # 0.0 K/mm3 05/16/17 07:05 Lymphocytes # (Manual) 0.6 K/mm3 (1.2-5.4) L 05/16/17 07:05 Abs React Lymphs (Man) 0.0 K/mm3 05/16/17 07:05 Monocytes # (Manual) 0.6 K/mm3 (0.0-0.8) 05/16/17 07:05 Eosinophils # (Manual) 0.0 K/mm3 (0.0-0.4) 05/16/17 07:05 Basophils # (Manual) 0.0 K/mm3 (0.0-0.1) 05/16/17 07:05 Metamyelocytes # 0.0 K/mm3 05/16/17 07:05 Myelocytes # 0.0 K/mm3 05/16/17 07:05 Promyelocytes # 0.0 K/mm3 05/16/17 07:05 Blast Cells # 0.0 K/mm3 05/16/17 07:05 WBC Morphology Not Reportable 05/16/17 07:05 Hypersegmented Neuts Not Reportable 05/16/17 07:05 Hyposegmented Neuts Not Reportable 05/16/17 07:05 Hypogranular Neuts Not Reportable 05/16/17 07:05 Smudge Cells Not Reportable 05/16/17 07:05 Toxic Granulation Not Reportable 05/16/17 07:05 Toxic Vacuolation Not Reportable 05/16/17 07:05 Dohle Bodies Not Reportable 05/16/17 07:05 Pelger-Huet Anomaly Not Reportable 05/16/17 07:05 Khari Rods Not Reportable 05/16/17 07:05 Platelet Estimate Appears normal 05/16/17 07:05 Clumped Platelets Not Reportable 05/16/17 07:05 Plt Clumps, EDTA Not Reportable 05/16/17 07:05 Large Platelets Not Reportable 05/16/17 07:05 Giant Platelets Not Reportable 05/16/17 07:05 Platelet Satelliting Not Reportable 05/16/17 07:05 Plt Morphology Comment Not Reportable 05/16/17 07:05 RBC Morphology Normal 05/16/17 07:05 Dimorphic RBCs Not Reportable 05/16/17 07:05 Polychromasia Not Reportable 05/16/17 07:05 Hypochromasia Not Reportable 05/16/17 07:05 Poikilocytosis Not Reportable 05/16/17 07:05 Anisocytosis Not Reportable 05/16/17 07:05 Microcytosis Not Reportable 05/16/17 07:05 Macrocytosis Not Reportable 05/16/17 07:05 Spherocytes Not Reportable 05/16/17 07:05 Pappenheimer Bodies Not Reportable 05/16/17 07:05 Sickle Cells Not Reportable 05/16/17 07:05 Target Cells Not Reportable 05/16/17 07:05 Tear Drop Cells Not Reportable 05/16/17 07:05 Ovalocytes Not Reportable 05/16/17 07:05 Helmet Cells Not Reportable 05/16/17 07:05 [place] Bodies Not Reportable 05/16/17 07:05 [place] Rings Not Reportable 05/16/17 07:05 [place] Cells Not Reportable 05/16/17 07:05 Bite Cells Not Reportable 05/16/17 07:05 Crenated Cell Not Reportable 05/16/17 07:05 Elliptocytes Not Reportable 05/16/17 07:05 Acanthocytes (Spur) Not Reportable 05/16/17 07:05 Rouleaux Not Reportable 05/16/17 07:05 Hemoglobin C Crystals Not Reportable 05/16/17 07:05 Schistocytes Not Reportable 05/16/17 07:05 Malaria parasites Not Reportable 05/16/17 07:05 Mike Bodies Not Reportable 05/16/17 07:05 Hem Pathologist Commnt No 05/16/17 07:05 POC ABG pH 7.518 (7.35-7.45) H 05/15/17 01:13 POC ABG pCO2 29.7 (35-45) L 05/15/17 01:13 POC ABG pO2 31 (80-105) L 05/15/17 01:13 POC ABG HCO3 24.2 05/15/17 01:13 POC ABG Total CO2 25 05/15/17 01:13 POC ABG O2 Sat 69 05/15/17 01:13 POC ABG Base Excess 1 05/15/17 01:13 FiO2 32 % 05/15/17 01:13 Sodium 139 mmol/L (137-145) 05/16/17 07:05 Potassium 3.6 mmol/L (3.6-5.0) 05/16/17 07:05 Chloride 99.6 mmol/L (98-107) 05/16/17 07:05 Carbon Dioxide 25 mmol/L (22-30) 05/16/17 07:05 Anion Gap 18 mmol/L 05/16/17 07:05 BUN 20 mg/dL (9-20) 05/16/17 07:05 Creatinine 0.6 mg/dL (0.8-1.5) L 05/16/17 07:05 Estimated GFR > 60 ml/min 05/16/17 07:05 BUN/Creatinine Ratio 33 % 05/16/17 07:05 Glucose 168 mg/dL (75-100) H 05/16/17 07:05 Calcium 8.2 mg/dL (8.4-10.2) L 05/16/17 07:05 Total Creatine Kinase 20 units/L (55-170) L 05/15/17 09:56 CK-MB (CK-2) 2.0 ng/mL (0.0-4.0) 05/15/17 09:56 CK-MB (CK-2) Rel Index 10.0 (0-4) H 05/15/17 09:56 Troponin T < 0.010 ng/mL (0.00-0.029) 05/15/17 09:56
[2017-05-18] MEDS: TYLENOL PO PRN (22:19)
[2017-05-19] MEDS: BROVANA NEBU IH SCH (08:35)
[2017-05-19] MEDS: PULMICORT IH SCH (08:35)
[2017-05-19] MEDS: DUONEB *Not for PRN Use IH SCH ×2 (08:35→14:54)
[2017-05-19] MEDS: HALFPRIN EC PO SCH (10:23)
[2017-05-19] MEDS: LOVENOX SUB-Q SCH (10:23)
[2017-05-19] MEDS: PEPCID PO SCH (10:23)
[2017-05-19] MEDS: LOPRESSOR PO SCH (10:23)
[2017-05-19] MEDS ORDERED: DELTASONE PO SCH (11:00)
--- NOTE | 2017-05-19 13:13 | Discharge Summary ---
Providers - Providers Date of Admission: 05/15/17 03:35 Attending physician: VIANNEY HOWE MD 05/14/17 23:43 Consult to Case Management [CONS] Stat Services Needed at Discharge: Wound Vac Notified:: awaiting call back Additional Physician Instructions: Cannot afford prescriptions, needs placement and assistance. 05/15/17 09:03 Consult to Wound/ET Nurse [CONS] Routine Reason For Exam: wound eval 05/17/17 18:04 Physical Therapy Evaluation and Treat [CONS] Routine Comment: Reason For Exam: Patient is not able to take care of himself Primary care physician: PATRIC ROWLADN Hospitalization Reason for admission: COPD exacerbation Condition: Good Disposition: [id number] Time spent for discharge: 32 minutes - Discharge Diagnoses (1) Acute respiratory failure Status: Acute Qualifiers: (2) COPD with exacerbation Status: Acute (3) Debility Status: Acute Core Measure Documentation - Palliative Care Palliative Care/ Comfort Measures: Not Applicable - Core Measures Any of the following diagnoses?: none Exam - Physical Exam Narrative exam: Not in cardiopulmonary distress. The patient appeared well nourished and normally developed. Vital signs as documented. Head exam is unremarkable. No scleral icterus . Neck is without jugular venous distension, thyromegaly, or carotid bruits. Lungs scattered wheezing. Cardiac exam reveals regular rate and Rhythm. First and second heart sounds normal. No murmurs, rubs or gallops. Abdominal exam reveals normal bowel sounds, no masses, no organomegaly and no aortic enlargement. Extremities are nonedematous and both femoral and pedal pulses are normal. 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 No focal weakness. - Constitutional Vitals: Temp Pulse Resp BP Pulse Ox 97.9 F 77 20 143/54 96 05/19/17 09:00 05/19/17 10:00 05/19/17 09:00 05/19/17 09:00 05/19/17 10:00 Plan Activity: no restrictions Weight Bearing Status: Full Weight Bearing Diet: low cholesterol Follow up with: PATRIC ROWLAND MD [Primary Care Provider] - 10 Days Prescriptions: Prednisone [predniSONE 10 mg (6-Day Pack, 21 Tabs)] 10 mg PO .TAPER #1 tab.ds.pk
[2017-05-19] MEDS: PERCOCET 5/325 PO PRN (13:43)
[2017-05-19 17:36] VITALS: BP 120/74
== END 2017-05-19 19:40 | DRG 189 ==
LOC: ED 20:15 → 4A 05-15 03:35
PROVIDERS: ADMIT Internal Medicine; ATTEND Internal Medicine
PROC: 5A09357 Assistance with Respiratory Ventilation, Less than 24 Consecutive Hours, Continuous Positive Airway Pressure (ICD-10-PCS; principal; 2017-05-15)
PROC: 4A033R1 Measurement of Arterial Saturation, Peripheral, Percutaneous Approach (ICD-10-PCS; 2017-05-15)
PROC: 3E0234Z Introduction of Serum, Toxoid and Vaccine into Muscle, Percutaneous Approach (ICD-10-PCS; 2017-05-16)
DX: J96.01 Acute respiratory failure with hypoxia (principal); J44.1 Chronic obstructive pulmonary disease with (acute) exacerbation; R53.81 Other malaise; I11.0 Hypertensive heart disease with heart failure; I50.9 Heart failure, unspecified; E78.5 Hyperlipidemia, unspecified; D72.829 Elevated white blood cell count, unspecified; T38.0X5A Adverse effect of glucocorticoids and synthetic analogues, initial encounter; Z95.1 Presence of aortocoronary bypass graft; I25.2 Old myocardial infarction; Z79.899 Other long term (current) drug therapy; Z82.49 Family history of ischemic heart disease and other diseases of the circulatory system; Z23 Encounter for immunization; Y92.89 Other specified places as the place of occurrence of the external cause
CPT/HCPCS: 36415; 71046; 80048; 82550; 82553; 82803; 84484; 85007; 85025; 90732; 93005; 93010; 94640; 94644; 94760; 99291; A9270-GY; G8978-GP; G8979-GP; J0456; J1650; J2920; J2930; J3475; J7050; J7512

== ENCOUNTER 2018-10-01 21:53 | Emergency (ER) | payer MEDICARE ==
[2018-10-01] MEDS ORDERED: PROVENTIL IH ONE (22:06)
[2018-10-01] MEDS ORDERED: ATROVENT IH ONE (22:06)
[2018-10-01] MEDS ORDERED: DECADRON IV ONE (22:06)
[2018-10-01] MEDS ORDERED: MAGNESIUM SULFATE 2GM/50ML 2 GM/50 ML BAG IV ONE (22:07)
--- NOTE | 2018-10-01 22:09 | Emergency Department Report ---
ED Shortness of Breath HPI - General Stated Complaint: DIFFICULTY IN BREATHING Time Seen by Provider: 10/01/18 22:01 Source: patient, EMS, old records reviewed Mode of arrival: Stretcher Limitations: No Limitations - History of Present Illness Initial Comments: 77-year-old male with a past medical history Alzheimer dementia, COPD oxygen dependence, CHF, CAD with CABG, and hypertension as the hospital from [facility] for hypoxia. As per EMS staff noted that O2 sat was 91% on room air. Chest x-ray 2 view was performed in official report is no acute cardiopulmonary process. O2 sat improved with nasal cannula. Physician requested transport to the hospital. Patient doesn't have any complaints. He denies chest pain or shortness of breath. Complains of mild cough is oriented to person, year, but states he is currently at [facility]. retirement vitals include BP 130/78, heart rate 120, respiratory rate 20, O2 sat 91%, and temp 98. retirement physician: Dr. Vinnie Edward - Related Data Home Medications Medication Instructions Recorded Confirmed Last Taken AtorvaSTATin [Lipitor] 20 mg PO QHS 03/30/18 03/30/18 Unknown Gabapentin 300 mg PO BID MDD Neuropathy 03/30/18 03/30/18 Unknown Incruse Ellipta 62.5 mcg IH Q12HR MDD SOB 03/30/18 03/30/18 Unknown Lisinopril 2.5 tab PO DAILY 03/30/18 03/30/18 Unknown Melatonin 5 mg Tablet 5 mg PO QHS 03/30/18 03/30/18 Unknown Mirtazapine 30 mg PO HS 03/30/18 03/30/18 Unknown Percocet 5/325 mg 1 mg PO Q6HR 03/30/18 03/30/18 Unknown Prednisone 2 puff IH Q6HR PRN 03/30/18 03/30/18 Unknown ProAir HFA Inhaler 2 inh IH Q6HR PRN 03/30/18 03/30/18 Unknown Sertraline [Zoloft] 50 tab PO QDAY 03/30/18 03/30/18 Unknown Previous Rx's Medication Instructions Recorded Last Taken Type Aspirin EC [Halfprin EC] 81 mg PO QDAY #30 tablet. 08/21/16 1 Day Ago Rx ~05/15/17 Budesonide [Pulmicort Respules] 0.25 mg IH Q12HR #60 nebu 07/05/17 1 Day Ago Rx ~05/15/17 Tiotropium [place] [Spiriva 4 gm IH DAILY #1 mist.inhal 08/21/16 1 Day Ago Rx Respimat] ~05/15/17 Famotidine [Pepcid] 20 mg PO BID #60 tablet 05/13/17 1 Day Ago Rx ~05/15/17 Metoprolol [Lopressor TAB] 100 mg PO BID #60 tablet 04/02/18 Unknown Rx levoFLOXacin [Levaquin TAB] 500 mg PO QDAY #5 tablet 04/02/18 Unknown Rx methylPREDNISolone [Medrol] 4 mg PO DAILY #1 tab.ds.pk 04/02/18 Unknown Rx Prednisone [predniSONE 10 mg 10 mg PO .TAPER #1 tab.ds.pk 10/02/18 Unknown Rx (6-Day Pack, 21 Tabs)] Allergies Allergy/AdvReac Type Severity Reaction Status Date / Time quetiapine Allergy Swelling Verified 08/31/15 13:19 ED Review of Systems ROS: Stated complaint: DIFFICULTY IN BREATHING Other details as noted in HPI Comment: All other systems reviewed and negative ED Past Medical Hx - Past Medical History Hx Hypertension: Yes Hx Heart Attack/AMI: Yes Hx Congestive Heart Failure: Yes Hx Asthma: Yes Hx COPD: Yes - Surgical History Hx Open Heart Surgery: Yes Additional Surgical History: BYPASS SURGERY 1999 - Social History Smoking Status: Unknown if ever smoked - Medications Home Medications: Home Medications Medication Instructions Recorded Confirmed Last Taken Type Aspirin EC [Halfprin EC] 81 mg PO QDAY #30 tablet. 08/21/16 03/30/18 1 Day Ago Rx ~05/15/17 Budesonide [Pulmicort Respules] 0.25 mg IH Q12HR #60 nebu 08/21/16 03/30/18 1 Day Ago Rx ~05/15/17 Tiotropium [place] [Spiriva 4 gm IH DAILY #1 mist.inhal 08/21/16 03/30/18 1 Day Ago Rx Respimat] ~05/15/17 Famotidine [Pepcid] 20 mg PO BID #60 tablet 05/13/17 03/30/18 1 Day Ago Rx ~05/15/17 AtorvaSTATin [Lipitor] 20 mg PO QHS 03/30/18 03/30/18 Unknown History Gabapentin 300 mg PO BID MDD Neuropathy 03/30/18 03/30/18 Unknown History Incruse Ellipta 62.5 mcg IH Q12HR MDD SOB 03/30/18 03/30/18 Unknown History Lisinopril 2.5 tab PO DAILY 03/30/18 03/30/18 Unknown History Melatonin 5 mg Tablet 5 mg PO QHS 03/30/18 03/30/18 Unknown History Mirtazapine 30 mg PO HS 03/30/18 03/30/18 Unknown History Percocet 5/325 mg 1 mg PO Q6HR 03/30/18 03/30/18 Unknown History Prednisone 2 puff IH Q6HR PRN 03/30/18 03/30/18 Unknown History ProAir HFA Inhaler 2 inh IH Q6HR PRN 03/30/18 03/30/18 Unknown History Sertraline [Zoloft] 50 tab PO QDAY 03/30/18 03/30/18 Unknown History Metoprolol [Lopressor TAB] 100 mg PO BID #60 tablet 04/02/18 Unknown Rx levoFLOXacin [Levaquin TAB] 500 mg PO QDAY #5 tablet 04/02/18 Unknown Rx methylPREDNISolone [Medrol] 4 mg PO DAILY #1 tab.ds.pk 04/02/18 Unknown Rx Prednisone [predniSONE 10 mg 10 mg PO .TAPER #1 tab.ds.pk 10/02/18 Unknown Rx (6-Day Pack, 21 Tabs)] ED Physical Exam - Other Other exam information: General: No acute distress Eyes: Normal appearance, pupils equal reactive to light, extraocular movements intact ENT: Normal oropharynx Neck: Normal appearance, no C-spine tenderness, no meningismus Chest: Comfortable without distress, mild bilateral expiratory wheezing without tachypnea, rales, or accessory muscle use. Cardiovascular: Regular rate and rhythm Abdomen: Soft, nondistended, nontender, no rebound or guarding, normal bowel sounds Back: Normal inspection, nontender Extremity: Normal inspection, no deformity, full range of motion, no edema Neuro: Alert and oriented 2, speech clear, no gross motor or sensory deficit Skin: No rash, once, or erythema ED Course Vital Signs 10/01/18 10/01/18 10/01/18 22:21 23:21 23:22 Pulse Rate 82 Pulse Rate [ 81 Anterior Bilateral Throughout] Respiratory 28 H 28 H Rate Respiratory 16 Rate [Anterior Bilateral Throughout] Blood Pressure 149/64 [Right] O2 Sat by Pulse 92 92 Oximetry 10/01/18 10/02/18 10/02/18 23:34 00:06 01:00 Pulse Rate 102 H Pulse Rate [ 91 H 81 Anterior Bilateral Throughout] Respiratory 22 Rate Respiratory 20 21 Rate [Anterior Bilateral Throughout] Blood Pressure 118/61 [Right] O2 Sat by Pulse 95 Oximetry 10/02/18 10/02/18 01:03 02:21 Pulse Rate 75 93 H Pulse Rate [ Anterior Bilateral Throughout] Respiratory 20 22 Rate Respiratory Rate [Anterior Bilateral Throughout] Blood Pressure 135/60 135/56 [Right] O2 Sat by Pulse 92 95 Oximetry - Consultations Consultation #1: 10/02/18 03:00 case d/w DR edward, informed of results and plan to send back to long-term with COPD exacerbation. Steroid taper will be prescribed ED Medical Decision Making - Lab Data Result diagrams: 10/01/18 22:30 10/01/18 22:30 Lab Results 10/01/18 10/01/18 10/01/18 Range/Units 22:29 22:30 22:30 WBC 14.8 H (4.5-11.0) K/mm3 RBC 4.24 (3.65-5.03) M/mm3 Hgb 13.0 (11.8-15.2) gm/dl Hct 39.1 (35.5-45.6) % MCV 92 (84-94) fl MCH 31 (28-32) pg MCHC 33 (32-34) % RDW 15.5 H (13.2-15.2) % Plt Count 207 (140-440) K/mm3 Lymph % (Auto) 10.9 L (13.4-35.0) % Stone % (Auto) 13.5 H (0.0-7.3) % Eos % (Auto) 0.1 (0.0-4.3) % Baso % (Auto) 0.5 (0.0-1.8) % Lymph # 1.6 (1.2-5.4) K/mm3 Stone # 2.0 H (0.0-0.8) K/mm3 Eos # 0.0 (0.0-0.4) K/mm3 Baso # 0.1 (0.0-0.1) K/mm3 Seg Neutrophils % 75.0 H (40.0-70.0) % Seg Neutrophils # 11.1 H (1.8-7.7) K/mm3 POC ABG pH 7.380 (7.35-7.45) POC ABG pCO2 44.3 (35-45) POC ABG pO2 68 L (80-105) POC ABG HCO3 26.2 (22-26 mml/L) POC ABG Total CO2 28 (23-27mmol/L) POC ABG O2 Sat 93 POC ABG Base Excess 1 ((-2) - (+3)mmol/L) FiO2 21 % Sodium 145 (137-145) mmol/L Potassium 3.4 L (3.6-5.0) mmol/L Chloride 104.0 (98-107) mmol/L Carbon Dioxide 28 (22-30) mmol/L Anion Gap 16 mmol/L BUN 22 H (9-20) mg/dL Creatinine 1.0 (0.8-1.5) mg/dL Estimated GFR > 60 ml/min BUN/Creatinine Ratio 22 % Glucose 120 H (75-100) mg/dL Calcium 9.4 (8.4-10.2) mg/dL Magnesium (1.7-2.3) mg/dL NT-Pro-B Natriuret Pep (0-900) pg/mL 10/01/18 10/01/18 Range/Units 22:30 22:30 WBC (4.5-11.0) K/mm3 RBC (3.65-5.03) M/mm3 Hgb (11.8-15.2) gm/dl Hct (35.5-45.6) % MCV (84-94) fl MCH (28-32) pg MCHC (32-34) % RDW (13.2-15.2) % Plt Count (140-440) K/mm3 Lymph % (Auto) (13.4-35.0) % Stone % (Auto) (0.0-7.3) % Eos % (Auto) (0.0-4.3) % Baso % (Auto) (0.0-1.8) % Lymph # (1.2-5.4) K/mm3 Stone # (0.0-0.8) K/mm3 Eos # (0.0-0.4) K/mm3 Baso # (0.0-0.1) K/mm3 Seg Neutrophils % (40.0-70.0) % Seg Neutrophils # (1.8-7.7) K/mm3 POC ABG pH (7.35-7.45) POC ABG pCO2 (35-45) POC ABG pO2 (80-105) POC ABG HCO3 (22-26 mml/L) POC ABG Total CO2 (23-27mmol/L) POC ABG O2 Sat POC ABG Base Excess ((-2) - (+3)mmol/L) FiO2 % Sodium (137-145) mmol/L Potassium (3.6-5.0) mmol/L Chloride (98-107) mmol/L Carbon Dioxide (22-30) mmol/L Anion Gap mmol/L BUN (9-20) mg/dL Creatinine (0.8-1.5) mg/dL Estimated GFR ml/min BUN/Creatinine Ratio % Glucose (75-100) mg/dL Calcium (8.4-10.2) mg/dL Magnesium 2.10 (1.7-2.3) mg/dL NT-Pro-B Natriuret Pep 2694 H (0-900) pg/mL - EKG Data -: EKG Interpreted by Me (PVC's) EKG shows normal: sinus rhythm, axis (qrs -15), QRS complexes (qrsd 122), ST-T waves (no stemi) Rate: normal (73) - Medical Decision Making ABGs on room air shows a PO2 greater than 60. Patient does not meet requirements for home oxygen. He was asymptomatic upon arrival. He did have some wheezing which improved with each treatment calm and steroids, and back. We will discharge back to long-term with steroid taper. retirement chest x-ray unremarkable - Differential Diagnosis COPD, asthma, CHF, pneumonia, bronchitis Critical Care Time: No Critical care attestation.: If time is entered above; I have spent that time in minutes in the direct care of this critically ill patient, excluding procedure time. ED Disposition Clinical Impression: COPD exacerbation Disposition: DC-01 TO HOME OR SELFCARE Is pt being admited?: No Does the pt Need Aspirin: No Condition: Stable Instructions: Chronic Obstructive Pulmonary Disease (ED) Additional Instructions: Take the medications as prescribed. Follow-up with your doctor or with a doctor/clinic provided. Return is symptoms worsen as indicated by the discharge instructions. Prescriptions: Prednisone [predniSONE 10 mg (6-Day Pack, 21 Tabs)] 10 mg PO .TAPER #1 tab.ds.pk Referrals: VINNIE EDWARD MD [Staff Physician] - 2-3 Days Time of Disposition: 03:29
[2018-10-01 22:50] LABS: Basophils # (Auto) 0.1 K/mm3 (0.0-0.1); Basophils % (Auto) 0.5 % (0.0-1.8); Eosinophils % (Auto) 0.1 % (0.0-4.3); Hematocrit 39.1 % (35.5-45.6); Lymphocytes # (Auto) 1.6 K/mm3 (1.2-5.4); Lymphocytes % (Auto) 10.9 % (13.4-35.0); Mean Corpuscular HGB Conc 33 % (32-34); Mean Corpuscular Volume 92 fl (84-94); Monocytes % (Auto) 13.5 % (0.0-7.3); Platelet Count 207 K/mm3 (140-440); Red Blood Count 4.24 M/mm3 (3.65-5.03); Red Cell Distribution Width 15.5 % (13.2-15.2)
[2018-10-01 23:26] LABS: BUN/Creatinine Ratio 22; Blood Urea Nitrogen 22 mg/dL (9-20); Calcium 9.4 mg/dL (8.4-10.2); Hemolysis Index 6
[2018-10-02] MEDS: K-DUR PO ONE ×2 (00:05→01:17)
[2018-10-02] MEDS ORDERED: PROVENTIL IH ONE (00:55)
[2018-10-02 02:22] VITALS: BP 135/56
== END 2018-10-02 05:00 | disposition home or self-care (01) ==
LOC: ED 21:53
DX: J44.1 Chronic obstructive pulmonary disease with (acute) exacerbation (principal); I11.0 Hypertensive heart disease with heart failure; I50.9 Heart failure, unspecified; I25.2 Old myocardial infarction; Z98.890 Other specified postprocedural states; Z79.82 Long term (current) use of aspirin; Z79.899 Other long term (current) drug therapy; Z88.8 Allergy status to other drugs, medicaments and biological substances
CPT/HCPCS: 36415; 80048; 82803; 83735; 83880; 85025; 93005; 93010; 94640; 96365; 96375; 99285; J1100; J3475; 94644

== ENCOUNTER 2019-10-11 08:57 | Observation (INO) | payer MEDICARE ==
[2019-10-11] MEDS ORDERED: ASPIRIN 325 MG TAB PO ONE (09:08)
--- NOTE | 2019-10-11 10:10 | XRay Report ---
CHEST 1 VIEW INDICATION: Chest Pain. COMPARISON: 03/31/2018 FINDINGS: Support devices: None. Heart: Normal. Lungs/Pleura: No acute pulmonary or pleural findings. IMPRESSION: 1. No acute findings. Signer Name: Raymundo Orellana MD Signed: 10/11/2019 10:05 AM Workstation Name: [id number]
[2019-10-11] MEDS ORDERED: SODIUM CHLORIDE 0.9% 500 ML 500 ML IV ONE (10:27)
--- NOTE | 2019-10-11 10:32 | Emergency Department Report ---
ED Chest Pain HPI - General Chief Complaint: Chest Pain Stated Complaint: CHEST PAIN Time Seen by Provider: 10/11/19 10:11 Source: patient Mode of arrival: Ambulatory Limitations: No Limitations - History of Present Illness Initial Comments: Patient is 78 years old male currently residing at [facility] assisted. Patient has history of coronary artery disease status post CABG in 2009, hypertension and COPD. Patient brought to the emergency room via EMS for evaluation of sudden onset of left-sided chest pain described by the patient as aching and tightness. Patient received 3 nitro by EMS and stated that it helped a lot with his pain. Patient denied any shortness of breath, fever, cough or chills. No nausea or vomiting. MD Complaint: chest pain -: hour(s) (2), This morning Onset: during rest Pain Location: left chest Pain Radiation: none Severity: moderate Severity scale (0 -10): 4 Quality: aching, heaviness - Related Data Home Medications Medication Instructions Recorded Confirmed Last Taken AtorvaSTATin [Lipitor] 20 mg PO QHS 03/30/18 10/11/19 10/10/19 Gabapentin 300 mg PO BID MDD Neuropathy 03/30/18 10/11/19 10/11/19 Lisinopril 5 tab PO DAILY 03/30/18 10/11/19 10/11/19 Melatonin 5 mg Tablet 5 mg PO QHS 03/30/18 10/11/19 10/10/19 Mirtazapine 30 mg PO HS 03/30/18 10/11/19 10/10/19 Sertraline [Zoloft] 100 mg PO QDAY 03/30/18 10/11/19 10/11/19 Acetaminophen [Mapap] 325 mg PO Q4H PRN 10/11/19 10/11/19 Unknown Acetaminophen [Non-Aspirin Extra 500 mg PO Q12H 10/11/19 10/11/19 Unknown Strength] Albuterol Sulfate [Proair 90 mcg IH Q6H PRN 10/11/19 10/11/19 Unknown Respiclick] Antacid [Alum-Mag Hydrox-Simeth 30 ml PO Q6HR PRN 10/11/19 10/11/19 Unknown [id number]/5Ml Susp] Ipratropium/Albuterol Sulfate 1 ampul IH Q6HR 10/11/19 10/11/19 Unknown [DUONEB *Not for PRN Use*] Loperamide HCl [Anti-Diarrheal] 2 mg PO TID PRN MDD 8 10/11/19 10/11/19 Unknown Loratadine [Allergy Relief] 10 mg PO DAILY PRN 10/11/19 10/11/19 Unknown Loratadine [Claritin] 10 mg PO DAILY 10/11/19 10/11/19 Unknown Previous Rx's Medication Instructions Recorded Last Taken Type Aspirin EC [Halfprin EC] 81 mg PO QDAY #30 tablet. 08/21/16 10/11/19 Rx Famotidine [Pepcid] 20 mg PO BID #60 tablet 05/13/17 10/11/19 Rx Metoprolol [Lopressor TAB] 100 mg PO BID #60 tablet 04/02/18 10/11/19 Rx Allergies Allergy/AdvReac Type Severity Reaction Status Date / Time quetiapine Allergy Swelling Verified 08/31/15 13:19 Heart Score - HEART Score History: Moderately suspicious EKG: Non-specific Age: > 65 Risk factors: > 3 risk factors or hx of atherosclerotic disease Troponin: < normal limit HEART Score: 6 - Critical Actions Critical Actions: 4-6 pts:12-16.6% risk of adverse cardiac event. Should be admitted ED Review of Systems ROS: Stated complaint: CHEST PAIN Other details as noted in HPI Comment: All other systems reviewed and negative Constitutional: denies: chills, fever Respiratory: denies: cough, shortness of breath, SOB with exertion Cardiovascular: chest pain. denies: palpitations, dyspnea on exertion, orthop erin Gastrointestinal: denies: abdominal pain, nausea, vomiting, diarrhea, c onstipation, hematemesis, melena, hematochezia Genitourinary: denies: dysuria Musculoskeletal: denies: back pain Neurological: denies: headache, weakness, numbness, paresthesias, confusion ED Past Medical Hx - Past Medical History Previous Medical History?: Yes Hx Hypertension: Yes Hx Heart Attack/AMI: Yes Hx Congestive Heart Failure: Yes Hx Asthma: Yes Hx COPD: Yes - Surgical History Past Surgical History?: Yes Hx Open Heart Surgery: Yes Additional Surgical History: BYPASS SURGERY 1999 - Social History Smoking Status: Never Smoker Substance Use Type: None - Medications Home Medications: Home Medications Medication Instructions Recorded Confirmed Last Taken Type Aspirin EC [Halfprin EC] 81 mg PO QDAY #30 tablet. 08/21/16 10/11/19 10/11/19 Rx Famotidine [Pepcid] 20 mg PO BID #60 tablet 05/13/17 10/11/19 10/11/19 Rx AtorvaSTATin [Lipitor] 20 mg PO QHS 03/30/18 10/11/19 10/10/19 History Gabapentin 300 mg PO BID MDD Neuropathy 03/30/18 10/11/19 10/11/19 History Lisinopril 5 tab PO DAILY 03/30/18 10/11/19 10/11/19 History Melatonin 5 mg Tablet 5 mg PO QHS 03/30/18 10/11/19 10/10/19 History Mirtazapine 30 mg PO HS 03/30/18 10/11/19 10/10/19 History Sertraline [Zoloft] 100 mg PO QDAY 03/30/18 10/11/19 10/11/19 History Metoprolol [Lopressor TAB] 100 mg PO BID #60 tablet 04/02/18 10/11/19 10/11/19 R x Acetaminophen [Mapap] 325 mg PO Q4H PRN 10/11/19 10/11/19 Unknown History Acetaminophen [Non-Aspirin Extra 500 mg PO Q12H 10/11/19 10/11/19 Unknown History Strength] Albuterol Sulfate [Proair 90 mcg IH Q6H PRN 10/11/19 10/11/19 Unknown History Respiclick] Antacid [Alum-Mag Hydrox-Simeth 30 ml PO Q6HR PRN 10/11/19 10/11/19 Unknown History [id number]/5Ml Susp] Ipratropium/Albuterol Sulfate 1 ampul IH Q6HR 10/11/19 10/11/19 Unknown History [DUONEB *Not for PRN Use*] Loperamide HCl [Anti-Diarrheal] 2 mg PO TID PRN MDD 8 10/11/19 10/11/19 Unknown History Loratadine [Allergy Relief] 10 mg PO DAILY PRN 10/11/19 10/11/19 Unknown History Loratadine [Claritin] 10 mg PO DAILY 10/11/19 10/11/19 Unknown History ED Physical Exam - General Limitations: No Limitations General appearance: alert, in no apparent distress - Head Head exam: Present: atraumatic, normocephalic, normal inspection - Eye Eye exam: Present: normal appearance - ENT ENT exam: Present: normal exam, normal orophraynx, mucous membranes moist - Neck Neck exam: Present: normal inspection, full ROM. Absent: tenderness, meningismus, lymphadenopathy, thyromegaly - Respiratory Respiratory exam: Present: normal lung sounds bilaterally - Cardiovascular Cardiovascular Exam: Present: regular rate, normal rhythm, normal heart sounds - GI/Abdominal GI/Abdominal exam: Present: soft, normal bowel sounds. Absent: distended, ten derness, guarding, rebound, rigid, hypoactive bowel sounds, organomegaly, mass, bruit, pulsatile mass - Extremities Exam Extremities exam: Present: normal inspection, full ROM, normal capillary refill - Back Exam Back exam: Present: normal inspection, full ROM. Absent: CVA tenderness (R), CVA tenderness (L) - Neurological Exam Neurological exam: Present: alert, oriented X3, CN II-XII intact, normal gait, reflexes normal. Absent: motor sensory deficit - Psychiatric Psychiatric exam: Present: normal mood - Skin Skin exam: Present: warm, intact, normal color ED Course Vital Signs 10/11/19 10/11/19 10/11/19 09:03 09:06 09:30 Temperature 99.4 F Pulse Rate 100 H 90 Respiratory 16 13 Rate Blood Pressure 117/57 105/60 O2 Sat by Pulse 96 100 95 Oximetry 10/11/19 10/11/19 10/11/19 10:00 10:30 11:00 Temperature Pulse Rate 73 75 58 L Respiratory 23 12 15 Rate Blood Pressure 101/50 99/52 102/50 O2 Sat by Pulse 94 94 96 Oximetry 10/11/19 10/11/19 10/11/19 11:30 12:00 12:30 Temperature 98 F Pulse Rate 65 71 Respiratory 13 14 22 Rate Blood Pressure 111/53 122/76 126/64 O2 Sat by Pulse 97 99 98 Oximetry 10/11/19 13:01 Temperature Pulse Rate 79 Respiratory 33 H Rate Blood Pressure 107/26 O2 Sat by Pulse 98 Oximetry DEMETRIO score - Demetrio Score Aspirin use within the Past 7 Days: (1) Yes ED Medical Decision Making - Lab Data Result diagrams: 10/11/19 09:36 10/12/19 09:54 - EKG Data -: EKG Interpreted by Me EKG shows normal: sinus rhythm Rate: normal - EKG Data Interpretation: no acute changes - Radiology Data Radiology results: report reviewed - Medical Decision Making Patient is 78 years old male currently residing at [facility] assisted. Patient has history of coronary artery disease status post CABG in 2009, hypertension and COPD. Patient brought to the emergency room via EMS for evaluation of sudden onset of left-sided chest pain described by the patient as aching and tightness. Patient received 3 nitro by EMS and stated that it helped a lot with his pain. Patient denied any shortness of breath, fever, cough or chills. No nausea or vomiting. Patient stated that his symptom improved with nitroglycerin. EKG showed sinus rhythm with no ST elevation. Chest x-ray is unremarkable. Labs reviewed and is unremarkable including the first set of troponin. I discussed the patient with , she advised to admit the patient to Dr. Carlisle for further management. Critical Care Time: Yes Critical care time in (mins) excluding proc time.: 30 Critical care attestation.: If time is entered above; I have spent that time in minutes in the direct care of this critically ill patient, excluding procedure time. ED Disposition Clinical Impression: Unstable angina, Chest pain Disposition: 09 OP ADMIT IP TO THIS HOSP Is pt being admited?: Yes Condition: Stable
[2019-10-11] MEDS ORDERED: SODIUM CHLORIDE 0.9% 1000 ML 1,000 ML ONE (10:35)
[2019-10-11 10:43] LABS: Basophils % (Auto) 0.4 % (0.0-1.8); Eosinophils # (Auto) 0.1 K/mm3 (0.0-0.4); Eosinophils % (Auto) 1.7 % (0.0-4.3); Hematocrit 40.2 % (35.5-45.6); Hemoglobin 13.7 gm/dl (11.8-15.2); Lymphocytes # (Auto) 1.3 K/mm3 (1.2-5.4); Lymphocytes % (Auto) 19.7 % (13.4-35.0); Mean Corpuscular HGB Conc 34 % (32-34); Mean Corpuscular Volume 90 fl (84-94); Monocytes # (Auto) 0.6 K/mm3 (0.0-0.8); Monocytes % (Auto) 9.3 % (0.0-7.3); Platelet Count 186 K/mm3 (140-440); Red Blood Count 4.49 M/mm3 (3.65-5.03); Red Cell Distribution Width 15.7 % (13.2-15.2)
[2019-10-11 11:01] LABS: BUN/Creatinine Ratio 17; Blood Urea Nitrogen 15 mg/dL (9-20); Hemolysis Index 10
[2019-10-11 11:17] LABS: Alanine Aminotransferase 14 units/L (7-56); Albumin 4.6 g/dL (3.9-5)
[2019-10-11 11:27] LABS: Bilirubin,Direct < 0.2 mg/dL (0-0.2)
[2019-10-11] MEDS ORDERED: NITROGLYCERIN 0.4 MG TAB SUBL SL PRN (12:03)
[2019-10-11] MEDS ORDERED: ONDANSETRON 4 MG/2 ML INJ IV PRN (12:03)
--- NOTE | 2019-10-11 12:03 | History and Physical Report ---
History of Present Illness Chief complaint: I have pain in my chest History of present illness: 78 YO Male [facility] Res[facility] at [facility] with HTN, HLD, CAD S/P CABG, IN, COPD, Systolic CHF(35%), Asthma presents to ED for evaluation. The patient states that he experienced sudden onset chest pain today. Patient states that his pain is 45/10, constant, localized to the left chest, nonradiating, not worsened with exertion, not relieved with rest. EMS was notified and upon arrival the patient was treated with nitroglycerin tablets with relief of pain. Patient was subsequently transported to [facility] via private vehicle for further care and evaluation. Patient seen and evaluated in the emergency department. Lab and imaging studies reviewed. Patient found to have clinical symptoms consistent with angina. Patient placed in observation status and admitted to telemetry. Cardiology team consulted in ED. Patient denies fever, chills, palpitations, productive cough, skin rash, recent ill contacts, prolonged travel/immobility, unilateral leg swelling, calf pain, individual/family history of DVT/PE/bleeding/blood clotting disorders, chest wall pain, or known ill contacts. Prior admission on 03/30/2018 reviewed. All medication listed at time of admission has been reconciled. Past History Past Medical History: acute IN, COPD, heart failure, hypertension, hyperlipidemia, other (See HPI) Past Surgical History: CABG Social history: . denies: smoking, alcohol abuse, prescription drug abuse Family history: hypertension Medications and Allergies Allergies Allergy/AdvReac Type Severity Reaction Status Date / Time quetiapine Allergy Swelling Verified 08/31/15 13:19 Home Medications Medication Instructions Recorded Confirmed Last Taken Type Aspirin EC [Halfprin EC] 81 mg PO QDAY #30 tablet. 08/21/16 10/11/19 10/11/19 Rx Famotidine [Pepcid] 20 mg PO BID #60 tablet 05/13/17 10/11/19 10/11/19 Rx AtorvaSTATin [Lipitor] 20 mg PO QHS 03/30/18 10/11/19 10/10/19 History Gabapentin 300 mg PO BID MDD Neuropathy 03/30/18 10/11/19 10/11/19 History Lisinopril 5 tab PO DAILY 03/30/18 10/11/19 10/11/19 History Melatonin 5 mg Tablet 5 mg PO QHS 03/30/18 10/11/19 10/10/19 History Mirtazapine 30 mg PO HS 03/30/18 10/11/19 10/10/19 History Sertraline [Zoloft] 100 mg PO QDAY 03/30/18 10/11/19 10/11/19 History Metoprolol [Lopressor TAB] 100 mg PO BID #60 tablet 04/02/18 10/11/19 10/11/19 Rx Acetaminophen [Mapap] 325 mg PO Q4H PRN 10/11/19 10/11/19 Unknown History Acetaminophen [Non-Aspirin Extra 500 mg PO Q12H 10/11/19 10/11/19 Unknown History Strength] Albuterol Sulfate [Proair 90 mcg IH Q6H PRN 10/11/19 10/11/19 Unknown History Respiclick] Antacid [Alum-Mag Hydrox-Simeth 30 ml PO Q6HR PRN 10/11/19 10/11/19 Unknown History [id number] Susp] Ipratropium/Albuterol Sulfate 1 ampul IH Q6HR 10/11/19 10/11/19 Unknown History [DUONEB *Not for PRN Use*] Loperamide HCl [Anti-Diarrheal] 2 mg PO TID PRN MDD 8 10/11/19 10/11/19 Unknown History Loratadine [Allergy Relief] 10 mg PO DAILY PRN 10/11/19 10/11/19 Unknown History Loratadine [Claritin] 10 mg PO DAILY 10/11/19 10/11/19 Unknown History Review of Systems Constitutional: no weight loss, no weight gain, no fever, no sweats Ears, nose, mouth and throat: no ear pain, no ear discharge, no tinnitis, no decreased hearing, no nose pain Cardiovascular: chest pain, no orthopnea, no palpitations, no rapid/irregular heart beat, no edema, no dyspnea on exertion, no paroxysmal nocturnal dyspnea, no claudication Respiratory: no cough, no cough with sputum, no excessive sputum Gastrointestinal: no nausea, no vomiting, no diarrhea, no constipation Genitourinary Male: no hematuria, no flank pain, no discharge, no urinary frequency, no urinary hesitancy Musculoskeletal: no neck stiffness, no neck pain, no low back pain, no leg numbness/tingling Integumentary: no rash, no pruritis, no redness, no sores Neurological: no transient paralysis, no paralysis, no weakness, no parathesias, no numbness, no tingling, no seizures Psychiatric: no anxiety, no memory loss, no change in sleep habits, no hypersomnia, no change in appetite Endocrine: no cold intolerance, no heat intolerance, no excessive thirst, no polydipsia, no nocturia Hematologic/Lymphatic: no easy bruising, no easy bleeding Allergic/Immunologic: no urticaria, no allergic rhinitis, no wheezing Exam - Constitutional Vitals: Temp Pulse Resp BP Pulse Ox 99.4 F 100 H 16 117/57 100 10/11/19 09:06 10/11/19 09:06 10/11/19 09:06 10/11/19 09:06 10/11/19 09:06 General appearance: Present: mild distress - EENT Eyes: Present: PERRL ENT: hearing intact, clear oral mucosa - Neck Neck: Present: supple, normal ROM - Respiratory Respiratory effort: normal Respiratory: bilateral: CTA - Cardiovascular Heart Sounds: Present: S1 & S2. Absent: rub, click - Extremities Extremities: pulses symmetrical, No edema Peripheral Pulses: within normal limits - Abdominal General gastrointestinal: Present: soft, non-tender, non-distended, normal bowel sounds Male genitourinary: Present: normal - Integumentary Integumentary: Present: clear, warm, dry - Musculoskeletal Musculoskeletal: gait normal, strength equal bilaterally - Psychiatric Psychiatric: appropriate mood/affect, intact judgment & insight - Neurologic Neurologic: CNII-XII intact, moves all extremities HEART Score - HEART Score Troponin: Troponin T < 0.010 ng/mL (0.00-0.029) 10/11/19 09:36 Results - Labs CBC & Chem 7: 10/11/19 09:36 10/11/19 09:36 Labs: Abnormal lab results 10/11/19 Range/Units 09:36 RDW 15.7 H (13.2-15.2) % [place] % (Auto) 9.3 H (0.0-7.3) % Assessment and Plan - Patient Problems (1) Angina at rest Current Visit: Yes Status: Acute Plan to address problem: Chest pain protocol: Admit to telemetry, cardiology consulted, serial cardiac enzymes, EKG, supportive care. Stress test from March 2018 reviewed. Echocardiogram from March 2018 reviewed. (2) CHF (congestive heart failure) Current Visit: Yes Status: Acute Qualifiers: Heart failure type: systolic Heart failure chronicity: chronic Qualified Code(s): I50.22 - Chronic systolic (congestive) heart failure Plan to address problem: Strict I's/O, monitor urine output every shift, daily weight, afterload reduction, blood pressure control, supplemental oxygen, supportive care. (3) HLD (hyperlipidemia) Current Visit: No Status: Acute Qualifiers: Hyperlipidemia type: mixed hyperlipidemia Qualified Code(s): E78.2 - Mixed hyperlipidemia Plan to address problem: Statin therapy, risk factor reduction therapy, low-cholesterol diet. (4) HTN (hypertension) Current Visit: No Status: Chronic Qualifiers: Hypertension type: essential hypertension Qualified Code(s): I10 - Essential (primary) hypertension Plan to address problem: Monitor blood pressure every shift, continue medical management (5) DVT prophylaxis Current Visit: No Status: Acute Plan to address problem: SCD to bilateral lower extremities while in bed, patient is ambulatory (6) Advance care planning Current Visit: Yes Status: Acute Plan to address problem: Disease education conducted, patient is full code, prognosis discussed, patient knowledges understanding and agreement with care plan, +30 minutes.
[2019-10-11 13:27] LABS: Chol/HDL Ratio 4.07 %; HDL Cholesterol 51 mg/dL (40-59); LDL Cholesterol,Direct 148 mg/dL (50-130)
[2019-10-11 13:36] LABS: INR 1.08 (0.87-1.13)
[2019-10-11 13:37] LABS: Partial Thromboplastin Time 30.6 Sec. (24.2-36.6)
--- NOTE | 2019-10-11 15:49 | Cat Scan Report ---
CTA CHEST WITH IV CONTRAST INDICATION: CHEST PAIN WITH ELEVATED D-DIMER. TECHNIQUE: Axial CT images were obtained through the chest after injection of IV contrast. 3 plane MIP reconstru ctions were produced. All CT scans at this location are performed using CT dose reduction for ALARA b y means of automated exposure control. COMPARISON: CT 03/30/2018. FINDINGS: Pulmonary Arteries: No pulmonary emboli. Thoracic Aorta: No acute abnormality. Heart: No acute findings. Post CABG changes. Lungs: There is a punctate 3-4 mm nodular density along the major fissure within the lingular segment of the left upper lobe on series 2 image 75. This is new since the prior. Calcified granuloma is aga in seen in the left lower lobe. Pleura: No pleural effusion. No pneumothorax. Lymph Nodes: No significant adenopathy. Additional Findings: None. Upper Abdomen: No acute findings. Skeletal Structures: No significant osseous abnormality. IMPRESSION: 1. No CT evidence for pulmonary embolism. 2. No acute findings. 3. Single incidental pulmonary nodule(s) in the left lingular lobe measuring 3-4 mm with perifissura l/subplueral characteristics. - Recommendation according to Fleischner Society 2017 Guidelines: Low Risk or High Risk Patient: No r outine follow-up. Signer Name: Raymundo Orellana MD Signed: 10/11/2019 3:44 PM Workstation Name: [id number]
[2019-10-11] MEDS: ACETAMINOPHEN 325 MG TAB PO PRN (20:31)
[2019-10-11] MEDS: FAMOTIDINE 20 MG TAB PO SCH ×2 (20:31→21:57)
[2019-10-11] MEDS: ALBUTEROL 2.5 MG/3 ML NEBU IH PRN (22:35)
[2019-10-12] MEDS: ACETAMINOPHEN 325 MG TAB PO PRN ×2 (10:21→20:12)
[2019-10-12] MEDS: FAMOTIDINE 20 MG TAB PO SCH ×2 (10:22→22:55)
[2019-10-12 10:30] LABS: BUN/Creatinine Ratio 21; Blood Urea Nitrogen 17 mg/dL (9-20); Calcium 9.2 mg/dL (8.4-10.2); Hemolysis Index 9
--- NOTE | 2019-10-12 12:04 | Consultation ---
History of Present Illness Consult date: 10/12/19 Consult reason: chest pain History of present illness: This is a 78-year-old man who presents with chest pain. Patient has a cardiac history coronary artery disease and underwent 5 way coronary artery bypass 20 years ago. In 2018 he had a stress thallium test showed no reversible ischemia, ejection fraction 30-35% by echocardiogram. Patient also has a history of COPD. On assessment, patient noted with wheezing. Patient denies shortness of breath. There is no lower extremity edema. Chest x- ray showed no evidence of interstitial edema. ECG shows a normal sinus rhythm, old inferior myocardial infarction and LVH. Past History Past Medical History: acute MN, COPD, heart failure, hypertension, hyperli pidemia Past Surgical History: CABG Social history: . denies: smoking, alcohol abuse, prescription drug abuse Family history: hypertension Medications and Allergies Allergies Allergy/AdvReac Type Severity Reaction Status Date / Time quetiapine Allergy Swelling Verified 08/31/15 13:19 Home Medications Medication Instructions Recorded Confirmed Last Taken Type Aspirin EC [Halfprin EC] 81 mg PO QDAY #30 tablet. 08/21/16 10/11/19 10/11/19 Rx Famotidine [Pepcid] 20 mg PO BID #60 tablet 05/13/17 10/11/19 10/11/19 Rx AtorvaSTATin [Lipitor] 20 mg PO QHS 03/30/18 10/11/19 10/10/19 History Gabapentin 300 mg PO BID MDD Neuropathy 03/30/18 10/11/19 10/11/19 History Lisinopril 5 tab PO DAILY 03/30/18 10/11/19 10/11/19 History Melatonin 5 mg Tablet 5 mg PO QHS 03/30/18 10/11/19 10/10/19 History Mirtazapine 30 mg PO HS 03/30/18 10/11/19 10/10/19 History Sertraline [Zoloft] 100 mg PO QDAY 03/30/18 10/11/19 10/11/19 History Metoprolol [Lopressor TAB] 100 mg PO BID #60 tablet 04/02/18 10/11/19 10/11/19 Rx Acetaminophen [Mapap] 325 mg PO Q4H PRN 10/11/19 10/11/19 Unknown History Acetaminophen [Non-Aspirin Extra 500 mg PO Q12H 10/11/19 10/11/19 Unknown History Strength] Albuterol Sulfate [Proair 90 mcg IH Q6H PRN 10/11/19 10/11/19 Unknown History Respiclick] Antacid [Alum-Mag Hydrox-Simeth 30 ml PO Q6HR PRN 10/11/19 10/11/19 Unknown History [id number] Susp] Ipratropium/Albuterol Sulfate 1 ampul IH Q6HR 10/11/19 10/11/19 Unknown History [DUONEB *Not for PRN Use*] Loperamide HCl [Anti-Diarrheal] 2 mg PO TID PRN MDD 8 10/11/19 10/11/19 Unknown History Loratadine [Allergy Relief] 10 mg PO DAILY PRN 10/11/19 10/11/19 Unknown History Loratadine [Claritin] 10 mg PO DAILY 10/11/19 10/11/19 Unknown History Active Meds: Active Medications Acetaminophen (Tylenol) 650 mg PO Q4H PRN PRN Reason: Pain MILD(1-3)/Fever >100.5/MEDEROS Last Admin: 10/12/19 10:21 Dose: 650 mg Documented by: Albuterol (Proventil) 2.5 mg IH Q4HRT PRN PRN Reason: Shortness Of Breath Last Admin: 10/11/19 22:35 Dose: 2.5 mg Documented by: Famotidine (Pepcid) 20 mg PO BID [facility] Last Admin: 10/12/19 10:22 Dose: 20 mg Documented by: Nitroglycerin (Nitrostat) 0.4 mg SL Q5M PRN PRN Reason: Chest Pain Last Admin: 10/11/19 20:03 Dose: 0.4 mg Documented by: Ondansetron HCl (Zofran) 4 mg IV Q8H PRN PRN Reason: Nausea And Vomiting Sodium Chloride (Sodium Chloride Flush Syringe 10 Ml) 10 ml IV BID [facility] Last Admin: 10/12/19 10:22 Dose: 10 ml Documented by: Sodium Chloride (Sodium Chloride Flush Syringe 10 Ml) 10 ml IV PRN PRN PRN Reason: LINE FLUSH Sodium Chloride (Sodium Chloride Flush Syringe 10 Ml) 10 ml IV PRN PRN PRN Reason: LINE FLUSH Physical Examination Vital Signs Pulse Ox 96 10/11/19 09:03 General appearance: no acute distress HEENT: Positive: PERRL Neck: Positive: trachea midline Cardiac: Positive: Reg Rate and Rhythm Results 10/11/19 09:36 10/12/19 09:54 Coagulation 10/11/19 Range/Units 12:01 PT 14.2 (12.2-14.9) Sec. INR 1.08 (0.87-1.13) APTT 30.6 (24.2-36.6) Sec. Lipids 10/11/19 Range/Units 12:01 Triglycerides 104 (2-149) mg/dL Cholesterol 208 H (50-199) mg/dL HDL Cholesterol 51 (40-59) mg/dL Cholesterol/HDL Ratio 4.07 % Comprehensive Metabolic Panel 10/12/19 Range/Units 09:54 Sodium 139 (137-145) mmol/L Potassium 4.1 (3.6-5.0) mmol/L Chloride 104.3 (98-107) mmol/L Carbon Dioxide 22 (22-30) mmol/L BUN 17 (9-20) mg/dL Creatinine 0.8 (0.8-1.3) mg/dL Glucose 95 (75-100) mg/dL Calcium 9.2 (8.4-10.2) mg/dL Assessment and Plan Chest pain chest CTA- no evidence of PE 03/2018 Lexiscan MPI - large fixed inferior and inferolateral wall defect consistent with prior MN in the RCA distribution, LVEF 46%, no ischemia 03/2018 Echo - LVEF 35% COPD excerbation Hx of CAD with remote CABG
[2019-10-12] MEDS: ASPIRIN EC 81 MG TAB PO SCH (13:45)
[2019-10-12] MEDS: SPIRONOLACTONE 25 MG TAB PO SCH (13:45)
[2019-10-12] MEDS: methylPREDNISolone Sod Succinate 40 MG/1 ML INJ IV SCH ×2 (13:46→22:55)
[2019-10-12] MEDS: LISINOPRIL 5 MG TAB PO SCH (13:46)
[2019-10-12] MEDS: METOPROLOL TARTRATE 25 MG TAB PO SCH ×2 (13:50→22:55)
[2019-10-12] MEDS ORDERED: methylPREDNISolone Sod Suc 40 MG in SODIUM CHLORIDE 0.9% 100 ML IV SCH (14:00)
--- NOTE | 2019-10-12 16:26 | Progress Note ---
Assessment and Plan Assessment and plan: 78-year-old man with a medical history of CABG-20 years ago and COPD who presented to the ED with a chief complaint of chest pain. Here in the ER, patient had an EKG done showed normal sinus rhythm with old inferior IN. Patient was admitted for chest pain rule out. 10/11. Stress test cancelled as patient was wheezing this am. Patient has been started on steroids. Assessment and plan Chest pain-plan for stress test tomorrow. N.p.o. after midnight. Cardiology recommendations appreciated COPD exacerbation -Solu-Medrol 40 mg every 8 -Bronchodilators -Follow-up with pulmonology on discharge Hypertension -continue to monitor blood pressure. Continue rest of home medications DVT prophylaxis-Heparin Full code History Interval history: See assessment and plan Hospitalist Physical - Constitutional Vitals: Temp Pulse Resp BP Pulse Ox 98.5 F 80 18 128/64 97 10/12/19 07:27 10/12/19 13:50 10/12/19 09:11 10/12/19 13:50 10/12/19 08:49 General appearance: Present: no acute distress - EENT Eyes: Present: PERRL - Neck Neck: Present: supple, normal ROM - Respiratory Respiratory effort: normal Respiratory: bilateral: wheezing - Cardiovascular Rhythm: regular Heart Sounds: Present: S1 & S2 - Extremities Extremities: no ischemia, No edema - Abdominal General gastrointestinal: soft, non-tender, non-distended - Psychiatric Psychiatric: appropriate mood/affect - Neurologic Neurologic: CNII-XII intact HEART Score - HEART Score EKG: Non-specific Age: > 65 Risk factors: > 3 risk factors or hx of atherosclerotic disease Troponin: Troponin T < 0.010 ng/mL (0.00-0.029) 10/11/19 17:19 Troponin: < normal limit - Critical Actions Critical Actions: 4-6 pts:12-16.6% risk of adverse cardiac event. Should be admitted Results - Labs CBC & Chem 7: 10/11/19 09:36 10/12/19 09:54 Labs: Laboratory Last Values WBC 6.6 K/mm3 (4.5-11.0) 10/11/19 09:36 RBC 4.49 M/mm3 (3.65-5.03) 10/11/19 09:36 Hgb 13.7 gm/dl (11.8-15.2) 10/11/19 09:36 Hct 40.2 % (35.5-45.6) 10/11/19 09:36 MCV 90 fl (84-94) 10/11/19 09:36 MCH 31 pg (28-32) 10/11/19 09:36 MCHC 34 % (32-34) 10/11/19 09:36 RDW 15.7 % (13.2-15.2) H 10/11/19 09:36 Plt Count 186 K/mm3 (140-440) 10/11/19 09:36 Lymph % (Auto) 19.7 % (13.4-35.0) 10/11/19 09:36 Cotton % (Auto) 9.3 % (0.0-7.3) H 10/11/19 09:36 Eos % (Auto) 1.7 % (0.0-4.3) 10/11/19 09:36 Baso % (Auto) 0.4 % (0.0-1.8) 10/11/19 09:36 Lymph # 1.3 K/mm3 (1.2-5.4) 10/11/19 09:36 Cotton # 0.6 K/mm3 (0.0-0.8) 10/11/19 09:36 Eos # 0.1 K/mm3 (0.0-0.4) 10/11/19 09:36 Baso # 0.0 K/mm3 (0.0-0.1) 10/11/19 09:36 Seg Neutrophils % 68.9 % (40.0-70.0) 10/11/19 09:36 Seg Neutrophils # 4.6 K/mm3 (1.8-7.7) 10/11/19 09:36 PT 14.2 Sec. (12.2-14.9) 10/11/19 12:01 INR 1.08 (0.87-1.13) 10/11/19 12:01 APTT 30.6 Sec. (24.2-36.6) 10/11/19 12:01 D-Dimer 468.98 ng/mlDDU (0-234) H 10/11/19 12:01 Sodium 139 mmol/L (137-145) 10/12/19 09:54 Potassium 4.1 mmol/L (3.6-5.0) 10/12/19 09:54 Chloride 104.3 mmol/L (98-107) 10/12/19 09:54 Carbon Dioxide 22 mmol/L (22-30) 10/12/19 09:54 Anion Gap 17 mmol/L 10/12/19 09:54 BUN 17 mg/dL (9-20) 10/12/19 09:54 Creatinine 0.8 mg/dL (0.8-1.3) 10/12/19 09:54 Estimated GFR > 60 ml/min 10/12/19 09:54 BUN/Creatinine Ratio 21 % 10/12/19 09:54 Glucose 95 mg/dL (75-100) 10/12/19 09:54 Calcium 9.2 mg/dL (8.4-10.2) 10/12/19 09:54 Total Bilirubin 0.50 mg/dL (0.1-1.2) 10/11/19 09:36 Direct Bilirubin < 0.2 mg/dL (0-0.2) 10/11/19 09:36 Indirect Bilirubin 0.3 mg/dL 10/11/19 09:36 AST 22 units/L (5-40) 10/11/19 09:36 ALT 14 units/L (7-56) 10/11/19 09:36 Alkaline Phosphatase 85 units/L (35-129) 10/11/19 09:36 Troponin T < 0.010 ng/mL (0.00-0.029) 10/11/19 17:19 NT-Pro-B Natriuret Pep 765.5 pg/mL (0-900) 10/11/19 09:36 Total Protein 7.3 g/dL (6.3-8.2) 10/11/19 09:36 Albumin 4.6 g/dL (3.9-5) 10/11/19 09:36 Albumin/Globulin Ratio 1.7 % 10/11/19 09:36 Triglycerides 104 mg/dL (2-149) 10/11/19 12:01 Cholesterol 208 mg/dL (50-199) H 10/11/19 12:01 LDL Cholesterol Direct 148 mg/dL (50-130) H 10/11/19 12:01 HDL Cholesterol 51 mg/dL (40-59) 10/11/19 12:01 Cholesterol/HDL Ratio 4.07 % 10/11/19 12:01 Ortiz/IV: Voiding Method Toilet IV Catheter Type [Right INT / Saline Lock Antecubital] IV Catheter Type [Left Hand] Peripheral IV Active Medications - Current Medications Current Medications: Generic Name Dose Route Start Last Admin Trade Name Freq PRN Reason Stop Dose Admin Acetaminophen 650 mg 10/11/19 12:03 10/12/19 10:21 Tylenol PO 650 mg Q4H PRN Administration Pain MILD(1-3)/Fever >100.5/MEDEROS Albuterol 2.5 mg 10/11/19 12:03 10/11/19 22:35 Proventil IH 2.5 mg Q4HRT PRN Administration Shortness Of Breath Aspirin 81 mg 10/12/19 13:00 10/12/19 13:45 Halfprin Ec PO 81 mg QDAY JAZMINE Administration Atorvastatin Calcium 20 mg 10/12/19 22:00 Lipitor PO QHS JAZMINE Famotidine 20 mg 10/11/19 22:00 10/12/19 10:22 Pepcid PO 20 mg BID JAZMINE Administration Lisinopril 2.5 mg 10/12/19 13:00 10/12/19 13:46 Zestril PO 2.5 mg QDAY JAZMINE Administration Methylprednisolone Sodium Succinate 40 mg 10/12/19 14:00 10/12/19 13:46 Solu-Medrol IV 10/17/19 13:59 40 mg Q8HR JAZMINE Administration Metoprolol Tartrate 25 mg 10/12/19 13:00 10/12/19 13:50 Metoprolol PO 25 mg BID JAZMINE Administration Nitroglycerin 0.4 mg 10/11/19 12:03 10/11/19 20:03 Nitrostat SL 0.4 mg Q5M PRN Administration Chest Pain Nitroglycerin 0.2 mg 10/13/19 06:00 Nitro Dur TD QDAY@0600 JAZMINE Ondansetron HCl 4 mg 10/11/19 12:03 Zofran IV Q8H PRN Nausea And Vomiting Sodium Chloride 10 ml 10/11/19 22:00 10/12/19 10:22 Sodium Chloride Flush Syringe 10 Ml IV 10 ml BID JAZMINE Administration Sodium Chloride 10 ml 10/11/19 12:03 Sodium Chloride Flush Syringe 10 Ml IV PRN PRN LINE FLUSH Sodium Chloride 10 ml 10/11/19 12:03 Sodium Chloride Flush Syringe 10 Ml IV PRN PRN LINE FLUSH Spironolactone 25 mg 10/12/19 14:00 10/12/19 13:45 Aldactone PO 25 mg QDAY JAZMINE Administration Nutrition/Malnutrition Assess - Dietary Evaluation Nutrition/Malnutrition Findings: Nutrition Notes Start: 10/12/19 15:07 Freq: Status: Active Protocol: Document 10/12/19 15:07 LM (Rec: 10/12/19 15:09 [email or web address]) Nutrition Notes Need for Assessment generated from: desk maker,MST Initial or Follow up Brief Note Weight Status Underweight Subjective/Other Information RN screen for MST. Pt NPO at time of visit. Diet has advanced to cardiac. Pt stated he eats well with no wt loss. Nutrition Intervention Revisit per MD consult or patient Sign Off request:
[2019-10-12] MEDS: ALBUTEROL 2.5 MG/3 ML NEBU IH PRN (19:29)
[2019-10-13] MEDS: methylPREDNISolone Sod Succinate 40 MG/1 ML INJ IV SCH ×2 (05:42→13:55)
[2019-10-13] MEDS ORDERED: NITROGLYCERIN 0.2 MG PATCH 24HR TD SCH (06:00)
[2019-10-13] MEDS ORDERED: REGADENOSON 0.4 MG/5 ML INJ IV ONE ×2 (08:58→08:59)
[2019-10-13] MEDS: METOPROLOL TARTRATE 25 MG TAB PO SCH (10:46)
[2019-10-13] MEDS: ASPIRIN EC 81 MG TAB PO SCH (10:46)
[2019-10-13] MEDS: LISINOPRIL 5 MG TAB PO SCH (10:47)
[2019-10-13] MEDS: SPIRONOLACTONE 25 MG TAB PO SCH (10:49)
[2019-10-13] MEDS: FAMOTIDINE 20 MG TAB PO SCH (10:49)
[2019-10-13] MEDS: ACETAMINOPHEN 325 MG TAB PO PRN (13:55)
--- NOTE | 2019-10-13 13:56 | Event Note ---
Date: 10/13/19 Patient underwent a Lexiscan thallium stress test, results are pending.
--- NOTE | 2019-10-13 14:51 | Discharge Summary ---
Providers - Providers Date of Admission: 10/11/19 12:39 Date of discharge: 10/13/19 Attending physician: ROLAND ALLEN 10/11/19 Consult to Cardiac Rehabilitation [CONS] Routine Reason For Exam: Phase I 10/11/19 12:03 Consult to Cardiology [CONS] Routine Consulting Provider: MELINA URBINA Reason For Exam: angina Primary care physician: MELISSA SETHI Hospitalization Condition: Stable Hospital course: 78-year-old man with a medical history of CABG-20 years ago and COPD who presented to the ED with a chief complaint of chest pain. Here in the ER, patient had an EKG done showed normal sinus rhythm with old inferior VA. Patient was admitted for chest pain rule out. 10/11. Stress test cancelled as patient was wheezing this am. Patient has been started on steroids. 10/12. Patient stress test shows a large infarct with no reversible ischemia. He remains without any chest pain this morning. Cardiology has adjusted his medications. Patient will follow-up with cardiology in the office in 1 week. I will also discharge patient on prednisone 40 mg daily for 5 days. He is stable to be discharged today. Disposition: DC-01 TO HOME OR SELFCARE Core Measure Documentation - Palliative Care Palliative Care/ Comfort Measures: Not Applicable - Core Measures Any of the following diagnoses?: none Exam - Constitutional Vitals: Temp Pulse Resp BP Pulse Ox 98.2 F 90 18 137/67 95 10/13/19 13:00 10/13/19 13:00 10/13/19 09:00 10/13/19 13:00 10/13/19 09:00 General appearance: Present: no acute distress, well-nourished - EENT Eyes: Present: PERRL ENT: hearing intact, clear oral mucosa - Neck Neck: Present: supple, normal ROM - Respiratory Respiratory effort: normal Respiratory: bilateral: CTA - Cardiovascular Heart Sounds: Present: S1 & S2. Absent: rub, click - Extremities Extremities: pulses symmetrical, No edema Peripheral Pulses: within normal limits - Abdominal General gastrointestinal: Present: soft, non-tender, non-distended, normal bowel sounds Male genitourinary: Present: normal - Integumentary Integumentary: Present: clear, warm, dry - Musculoskeletal Musculoskeletal: gait normal, strength equal bilaterally - Psychiatric Psychiatric: appropriate mood/affect, intact judgment & insight - Neurologic Neurologic: CNII-XII intact, moves all extremities Plan Diet: low fat, low cholesterol Additional Instructions: Continue medications as prescribed. Follow-up with cardiology in the office in 1 week. Follow up with: MELISSA SETHI MD [Primary Care Provider] - 3-5 Days MELINA URBINA MD [Staff Physician] - 7 Days Prescriptions: AtorvaSTATin [Lipitor] 20 mg PO QHS #60 tablet Spironolactone [Aldactone] 25 mg PO QDAY #30 tablet predniSONE [Deltasone] 40 mg PO QDAY #10 tab Aspirin EC [Halfprin EC] 81 mg PO QDAY #60 tablet Metoprolol [Lopressor TAB] 25 mg PO BID #60 tablet Nitroglycerin [Nitro Dur] 0.2 mg TD QDAY@0600 #30 patch lisinopriL [Zestril TAB] 2.5 mg PO QDAY #60 tablet
[2019-10-13 16:47] VITALS: BP 90/48
--- NOTE | 2019-10-13 18:32 | Treadmill Report ---
THALLIUM STRESS TEST LEFT VENTRICLE: Left ventricle appears mildly dilated. Perfusion study demonstrates a moderate to large, fixed inferior defect, no significant reversibility on the resting study. Gated analysis demonstrates moderate left ventricular systolic dysfunction with ejection fraction calculated at 40%. CONCLUSION: Evidence of a large prior inferior myocardial infarction, with no significant reversible periinfarct ischemia. There is moderate severity ischemic cardiomyopathy. Clinical correlation is recommended. JOB# [id number] CA/NTS
== END 2019-10-13 19:10 | disposition home or self-care (01) ==
LOC: ED 08:57 → 4A 12:39
PROVIDERS: ADMIT Internal Medicine; ATTEND Internal Medicine
DX: I20.0 Unstable angina (principal); I11.0 Hypertensive heart disease with heart failure; I50.9 Heart failure, unspecified; E78.5 Hyperlipidemia, unspecified; J44.1 Chronic obstructive pulmonary disease with (acute) exacerbation; I25.2 Old myocardial infarction; Z95.1 Presence of aortocoronary bypass graft; Z79.82 Long term (current) use of aspirin
CPT/HCPCS: 36415; 71045; 71275; 78452; 80048; 80061; 80076; 83880; 84484; 85025; 85379; 85610; 85730; 93005; 93017; 94640; 94760; 96374; 96376; 99291; A9270; A9502; G0378; J2785; J2920; J7030; Q9967

== ENCOUNTER 2020-06-01 15:04 | Emergency (ER) | payer MEDICARE ==
--- NOTE | 2020-06-01 18:01 | Emergency Department Report ---
ED Dizziness HPI - General Chief Complaint: Fall Stated Complaint: FALL/BURISED HEAD Time Seen by Provider: 06/01/20 17:26 Source: patient, EMS Mode of arrival: Stretcher Limitations: No Limitations - History of Present Illness Initial Comments: CC: "I'm ready to go home. I fell. They sent me over as a precaution." HPI: Thisi s a 79 yo male with hx of CAD s/p CABG, COPD, CHF, HTN, MDD who presents with dizziness and fall. Mr. Lopes informed me that he felt dizzy after getting up to go to bathroom. He did not lose consciousness. He fell. He does not walk with assistance aid. He denies chest pain, palpitiatons. He denies head trauma. Mr. Lopes is a resident of [facility] detention facility. MD Complaint: dizziness -: Gradual Timing: gradual onset Description: "room spinning" History of Same: Yes History of Trauma: No Severity: mild Improves With: rest Worsens With: movement Associated Symptoms: denies other symptoms - Related Data Home Medications Medication Instructions Recorded Confirmed Last Taken Gabapentin 300 mg PO BID MDD Neuropathy 03/30/18 10/11/19 10/11/19 Melatonin 5 mg Tablet 5 mg PO QHS 03/30/18 10/11/19 10/10/19 Mirtazapine 30 mg PO HS 03/30/18 10/11/19 10/10/19 Sertraline [Zoloft] 100 mg PO QDAY 03/30/18 10/11/19 10/11/19 Acetaminophen [Mapap] 325 mg PO Q4H PRN 10/11/19 10/11/19 Unknown Acetaminophen [Non-Aspirin Extra 500 mg PO Q12H 10/11/19 10/11/19 Unknown Strength] Albuterol Sulfate [Proair 90 mcg IH Q6H PRN 10/11/19 10/11/19 Unknown Respiclick] Ipratropium/Albuterol Sulfate 1 ampul IH Q6HR 10/11/19 10/11/19 Unknown [DUONEB *Not for PRN Use*] Loperamide HCl [Anti-Diarrheal] 2 mg PO TID PRN MDD 8 10/11/19 10/11/19 Unknown Loratadine [Allergy Relief] 10 mg PO DAILY PRN 10/11/19 10/11/19 Unknown Loratadine [Claritin] 10 mg PO DAILY 10/11/19 10/11/19 Unknown Previous Rx's Medication Instructions Recorded Last Taken Type Aspirin EC [Halfprin EC] 81 mg PO QDAY #60 tablet 10/13/19 Unknown Rx AtorvaSTATin [Lipitor] 20 mg PO QHS #60 tablet 10/13/19 Unknown Rx Metoprolol [Lopressor TAB] 25 mg PO BID #60 tablet 10/13/19 Unknown Rx Nitroglycerin [Nitro Dur] 0.2 mg TD QDAY@0600 #30 patch 10/13/19 Unknown Rx Spironolactone [Aldactone] 25 mg PO QDAY #30 tablet 10/13/19 Unknown Rx lisinopriL [Zestril TAB] 2.5 mg PO QDAY #60 tablet 10/13/19 Unknown Rx predniSONE [Deltasone] 40 mg PO QDAY #10 tab 10/13/19 Unknown Rx Allergies Allergy/AdvReac Type Severity Reaction Status Date / Time quetiapine Allergy Swelling Verified 08/31/15 13:19 ED Review of Systems ROS: Stated complaint: FALL/BURISED HEAD Other details as noted in HPI Comment: All other systems reviewed and negative Constitutional: denies: fever, malaise Respiratory: denies: cough, shortness of breath Cardiovascular: denies: chest pain Gastrointestinal: denies: abdominal pain, nausea, vomiting ED Past Medical Hx - Past Medical History Previous Medical History?: Yes Hx Hypertension: Yes Hx Heart Attack/AMI: Yes (Angina) Hx Congestive Heart Failure: Yes Hx Psychiatric Treatment: (MDD) Hx Asthma: Yes Hx COPD: Yes - Surgical History Hx Open Heart Surgery: Yes Additional Surgical History: BYPASS SURGERY 1999 - Social History Smoking Status: Former Smoker Substance Use Type: None - Medications Home Medications: Home Medications Medication Instructions Recorded Confirmed Last Taken Type Gabapentin 300 mg PO BID MDD Neuropathy 03/30/18 10/11/19 10/11/19 History Melatonin 5 mg Tablet 5 mg PO QHS 03/30/18 10/11/19 10/10/19 History Mirtazapine 30 mg PO HS 03/30/18 10/11/19 10/10/19 History Sertraline [Zoloft] 100 mg PO QDAY 03/30/18 10/11/19 10/11/19 History Acetaminophen [Mapap] 325 mg PO Q4H PRN 10/11/19 10/11/19 Unknown History Acetaminophen [Non-Aspirin Extra 500 mg PO Q12H 10/11/19 10/11/19 Unknown History Strength] Albuterol Sulfate [Proair 90 mcg IH Q6H PRN 10/11/19 10/11/19 Unknown History Respiclick] Ipratropium/Albuterol Sulfate 1 ampul IH Q6HR 10/11/19 10/11/19 Unknown History [DUONEB *Not for PRN Use*] Loperamide HCl [Anti-Diarrheal] 2 mg PO TID PRN MDD 8 10/11/19 10/11/19 Unknown History Loratadine [Allergy Relief] 10 mg PO DAILY PRN 10/11/19 10/11/19 Unknown History Loratadine [Claritin] 10 mg PO DAILY 10/11/19 10/11/19 Unknown History Aspirin EC [Halfprin EC] 81 mg PO QDAY #60 tablet 10/13/19 Unknown Rx AtorvaSTATin [Lipitor] 20 mg PO QHS #60 tablet 10/13/19 Unknown Rx Metoprolol [Lopressor TAB] 25 mg PO BID #60 tablet 10/13/19 Unknown Rx Nitroglycerin [Nitro Dur] 0.2 mg TD QDAY@0600 #30 patch 10/13/19 Unknown Rx Spironolactone [Aldactone] 25 mg PO QDAY #30 tablet 10/13/19 Unknown Rx lisinopriL [Zestril TAB] 2.5 mg PO QDAY #60 tablet 10/13/19 Unknown Rx predniSONE [Deltasone] 40 mg PO QDAY #10 tab 10/13/19 Unknown Rx ED Physical Exam - General Limitations: No Limitations General appearance: alert, in no apparent distress - Head Head exam: Present: atraumatic, normocephalic, other (Craniotomy scar) - Eye Eye exam: Present: normal appearance - ENT ENT exam: Present: mucous membranes moist - Neck Neck exam: Present: normal inspection, other (Tracheostomy scar) - Respiratory Respiratory exam: Present: normal lung sounds bilaterally. Absent: respiratory distress - Cardiovascular Cardiovascular Exam: Present: regular rate, normal rhythm. Absent: systolic murmur, diastolic murmur, rubs, gallop - GI/Abdominal GI/Abdominal exam: Present: soft, normal bowel sounds. Absent: distended, tend erness, guarding, rebound - Rectal Rectal exam: Present: deferred - Extremities Exam Extremities exam: Present: normal inspection - Back Exam Back exam: Present: normal inspection - Neurological Exam Neurological exam: Present: alert, oriented X3 - Psychiatric Psychiatric exam: Present: normal affect, normal mood - Skin Skin exam: Present: warm, dry, intact, normal color. Absent: rash - Other Other exam information: GCS 15 insightful ED Course Vital Signs 06/01/20 06/01/20 17:08 17:16 Temperature 97.7 F Pulse Rate 88 86 Respiratory 20 14 Rate Blood Pressure 127/65 O2 Sat by Pulse 95 61 L Oximetry ED Medical Decision Making - Medical Decision Making 1 mild dizziness upon standing: No evidence of medical emergency at this time after completing history taking and physical exam. 2. Fall without evidence of severe traumatic injury With shared clinical decision making, patient did not want any further testing or diagnostics performed. I do agree with his assessment and treatment plan. Critical care attestation.: If time is entered above; I have spent that time in minutes in the direct care of this critically ill patient, excluding procedure time. ED Disposition Clinical Impression: Dizziness, Fall Disposition: [id number] ANOTHER TYPE HLTHCARE Is pt being admited?: No Does the pt Need Aspirin: No Condition: Stable Instructions: Dizziness
[2020-06-01 18:44] VITALS: BP 126/59
== END 2020-06-01 21:11 | disposition other institution (70) ==
LOC: ED 15:04
DX: R42 Dizziness and giddiness (principal); I11.0 Hypertensive heart disease with heart failure; I50.9 Heart failure, unspecified; I25.2 Old myocardial infarction; J44.9 Chronic obstructive pulmonary disease, unspecified; Z98.890 Other specified postprocedural states; Z87.891 Personal history of nicotine dependence; Z79.899 Other long term (current) drug therapy; Z88.8 Allergy status to other drugs, medicaments and biological substances; W19.XXXA Unspecified fall, initial encounter; Y93.89 Activity, other specified; Y92.89 Other specified places as the place of occurrence of the external cause; Y99.8 Other external cause status